=== PATIENT | male | born 1950 | race Caucasian/White ===

== ENCOUNTER 2023-10-24 04:51 | Inpatient (IN) | payer BC, MEDICARE, SELFPAY ==
[2023-10-14 09:03] LABS: % Basophils 0.4 % (0-2); % Eosinophils 2.6 % (0-6); % Immature Granulocytes 0.4 % (0-0.5); % Lymphocytes 20.8 % (20.5-51.1); % Monocytes 5.5 % (1.7-9.3); % Neutrophils 70.3 % (42.2-75.2); Absolute Eosinophils 0.2 10^3/uL (0-0.7); Absolute Lymphocytes 1.5 10^3/uL (1.2-3.4); Absolute Monocytes 0.4 10^3/uL (0.1-0.6); Absolute Neutrophils 5.1 10^3/uL (1.4-6.5); Hematocrit 39.1 % (39.0-52.0); Hemoglobin 13.5 g/dL (13.0-18.0); Mean Corp Hgb Conc. 34.5 g/dL (33.0-37.0); Mean Corpuscular Hgb 30.8 pg (27.0-31.0); Mean Corpuscular Volume 89.1 fL (80.0-94.0); Mean Platelet Volume 9.3 fL (7.4-10.4); Nucleated Red Blood Cells % 0 % (-); Platelet Count 275 10^3/uL (130-400); Red Blood Cell Count 4.39 10^6/uL (4.70-6.10); Red Cell Dist. Width 13.2 % (11.5-14.5); White Blood Cell Count 7.3 10^3/uL (4.8-10.8)
[2023-10-14 09:05] LABS: Urine Albumin Negative (Neg - Trace); Urine Bilirubin Negative (Negative); Urine Character Clear (Clear); Urine Color Yellow; Urine Glucose Negative (Negative); Urine Ketone Negative (Negative); Urine Leukocyte Trace (Negative); Urine Nitrite Negative (Negative); Urine Occult Blood Trace (Negative); Urine Urobilinogen Negative (Neg - 1+); Urine pH 6.5 (5.0-9.0)
[2023-10-14 09:12] LABS: INR 0.95; PT 12.5 Sec (11.4-14.6)
[2023-10-14 09:27] LABS: Urine Bacteria Few (Negative)
[2023-10-14 09:27] LABS: Glycohemoglobin (HgbA1c) 7.1 % (4.0-5.6)
[2023-10-14 10:06] LABS: AST (SGOT) 26 U/L (17-59); Albumin 4.1 g/dl (3.5-5.0); Alkaline Phosphatase 79 U/L (38-126); Blood Urea Nitrogen 15 mg/dl (9-20); Calcium 9.4 mg/dl (8.4-10.2); Carbon Dioxide 27 mmol/L (22-30); Chloride 105 mmol/L (98-107); Direct Bilirubin 0.5 mg/dl (0.0-0.4); Glucose 116 mg/dl (70-99); Potassium 4.3 mmol/L (3.5-5.1); Sodium 138 mmol/L (135-145); Total Bilirubin 0.6 mg/dl (0.2-1.3); Total Protein 6.7 g/dl (6.3-8.2); eGFR > 60.00
--- NOTE | 2023-10-14 10:36 | CM ---
Addendum entered by Maren Webster RN 10/14/23 10:44:
Patient saw Dr Poole at [facility] when he was treated for his LA 08/2023 but is a patient at [facility]. He was a patient of Dr Gann but is now seeing Dr Lopez. Has an appointment on 11/13/2023
Original Note:
Chart reviewed. Met with the patient in PAT. Patient is independent of ADLS, lives alone in a 2 STH, 2 DAVIDE, 0 DME. 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 Patient's son lives down the street and is taking FMLA
to help his father after surgery. Reviewed preoperative and postoperative instructions and restrictions, along with showering guidelines. Gave patient 2 soaps. Patient is agreeable to a home visit by CT Transitional RN. Plan is for the patient
to return home with CT Transitional RN.
[2023-10-14 11:08] LABS: ALT (SGPT) 19 U/L (0-50)
[2023-10-24] VITALS (11 sets, daily range): BP systolic 105–150; BP diastolic 54–76; BMI 25.5
--- NOTE | 2023-10-24 00:56 | W.PN.CT ---
Assessment / Plan
-
-Assessment:
-S/P AVR (#23 Inspiris RESILIA)/CABG x 2 (ROSI to LAD, GSV to D1)/Endoscopic harvest/prep of RLE GSV, by Dr. Ricardo, 10/24/23, pod#1
-Severe
-LVEF
-Severe multivessel CAD
-Hx NSTEMI S/P PCI with YULY x 3 to RCA, complicated by broken wire in the RCA, 09/09/23 @ [facility]
-S/P PCI with YULY x 1 to RCA to trap broken wire in RCA, 09/09/23 @ [facility] (on Brilinta @ home)
-Brilinta washout
-HTN
-HLD
-T2DM (A1C 7.1)
-Former tobacco use (quit x 50 yrs)
-S/P Appendectomy
-Acute postop blood loss/anemia (stable without blood transfusion)
-Acute postop atelectasis/pleural effusion
-Acute postop hypovolemia with subsequent hypervolemia
Plan:
-No major issues overnight. Hemodynamically and neurologically intact
-Successfully extubated yesterday 10/24/23 @ 1900
-Weaned off Levophed overnight, currently only on insulin gtt per protocol
-Last CI 2.4, U/O since OR 1055 mL
-Monitor chest tube output: 2meds 160/290, L pleural
-Cont. current meds (ASA, Amiodarone, Lopressor, Crestor; will add Plavix, held Amiodarone and Lopressor last night d/t hypotension/bradycardia)
-D/C'd swan and a-line this AM @
-Will D/C insulin gtt/transfer to telemetry phase tomorrow since pt is a diabetic
-D/C mcnally catheter
-Maintain cordis
-Maintain temporary pacer wire (will cut before d/c home)
-Encourage use of IS
-Wean off of O2 as tolerated
-OOB into chair
-Ambulate
Subjective
-
Date of Service: October 24, 2023
Objective Data
-
Lab Results
10/14/23 08:33
10/14/23 08:33
PT 12.5 Sec (11.4-14.6) 10/14/23 08:33
INR 0.95 10/14/23 08:33
APTT 29.0 Sec (23.4-35.0) 10/14/23 08:33
[2023-10-24] MEDS: BACTROBAN 2% OINTMENT 1 APPLIC NASAL ×2 (05:56→20:00)
[2023-10-24] MEDS: LOPRESSOR 25 MG PO (05:57)
[2023-10-24] MEDS: PROTONIX 40 MG PO (05:57)
[2023-10-24] MEDS: MAGNESIUM OXIDE 500 MG PO (05:57)
--- NOTE | 2023-10-24 06:30 | PTCARENOTE ---
Patient arrived to room 2265 with security dispatcher. Patient A+A+Ox3. No neurological deficits noted. Steady gait. No c/o pain or discomfort. Patient confirmed NPO status after midnight. Patient confirmed taking 4% chlorhexidine shower last
night and this morning. Patient clipped and prepped per protocol. Admission questions and medication reconciliation completed. Required pre-op medications administered. Metoprolol 25 mg PO given. Patient stopped Brilinta on 10/18/23. Patient
practiced using heart pillow. I.S. [address] Ricardo arrived and spoke with patient. manager call to [facility].
--- NOTE | 2023-10-24 06:41 | W.CVOR.SURPR ---
[facility] Surgeon Immed Pre Op
-
I have examined this patient prior to performance of the scheduled procedure.
The patient's condition is unchanged from the time of the dictated/written History and
Physical and the patient is able to undergo the scheduled procedure.
[2023-10-24 08:10] LABS: ACT+ - POC 107 Seconds (82-134)
[2023-10-24 08:13] LABS: Urine Albumin Negative (Neg - Trace); Urine Bilirubin Negative (Negative); Urine Character Clear (Clear); Urine Color Yellow; Urine Glucose Negative (Negative); Urine Ketone Negative (Negative); Urine Leukocyte 1+ (Negative); Urine Nitrite Negative (Negative); Urine Occult Blood 3+ (Negative); Urine Urobilinogen Negative (Neg - 1+); Urine pH 6.5 (5.0-9.0)
[2023-10-24 08:22] LABS: B.E. - POC -1.5 mmol/L; Glucose - POC 142 mg/dl (65-99); HCO3 - POC 22 mmol/L (21-29); Hematocrit - POC 35 % PCV (42-52); Hemodilution- POC Yes; Hemoglobin Calculated - POC 11.9; Ionized Calcium - POC 1.13 mmol/L (1.12-1.27); O2 Saturation %Calculated-POC 99.9 5 (92-96); PCO2 - POC 33 mmHg (35-45); PO2 - POC 285 mmHg (80-100); Potassium - POC 3.8 mmol/L (3.6-5.0); Sodium - POC 141 mmol/L (135-145); pH - POC 7.44 (7.35-7.45)
[2023-10-24 08:25] LABS: ACT+ - POC 93 Seconds (82-134)
--- NOTE | 2023-10-24 09:48 | CM ---
pt in OR today, cm to follow.
[2023-10-24 10:12] LABS: ACT+ - POC 862 Seconds (82-134)
[2023-10-24 10:56] LABS: ACT+ - POC 615 Seconds (82-134)
[2023-10-24 10:59] LABS: B.E. - POC 0.8 mmol/L; Glucose - POC 217 mg/dl (65-99); HCO3 - POC 26 mmol/L (21-29); Hematocrit - POC 26 % PCV (42-52); Hemodilution- POC Yes; Hemoglobin Calculated - POC 8.8; Ionized Calcium - POC 1.01 mmol/L (1.12-1.27); O2 Saturation %Calculated-POC 99.9 5 (92-96); PCO2 - POC 42 mmHg (35-45); PO2 - POC 278 mmHg (80-100); Potassium - POC 5.1 mmol/L (3.6-5.0); Sodium - POC 138 mmol/L (135-145)
[2023-10-24 11:34] LABS: ACT+ - POC 510 Seconds (82-134)
[2023-10-24 11:36] LABS: B.E. - POC -1.3 mmol/L; Glucose - POC 194 mg/dl (65-99); HCO3 - POC 24 mmol/L (21-29); Hematocrit - POC 26 % PCV (42-52); Hemodilution- POC Yes; Hemoglobin Calculated - POC 8.7; Ionized Calcium - POC 1.06 mmol/L (1.12-1.27); O2 Saturation %Calculated-POC 99.9 5 (92-96); PCO2 - POC 44 mmHg (35-45); PO2 - POC 284 mmHg (80-100); Potassium - POC 4.3 mmol/L (3.6-5.0); Sodium - POC 140 mmol/L (135-145); pH - POC 7.35 (7.35-7.45)
[2023-10-24 12:10] LABS: ACT+ - POC 451 Seconds (82-134)
[2023-10-24 12:11] LABS: B.E. - POC -0.3 mmol/L; Glucose - POC 167 mg/dl (65-99); HCO3 - POC 24 mmol/L (21-29); Hematocrit - POC 27 % PCV (42-52); Hemodilution- POC Yes; Hemoglobin Calculated - POC 9.1; Ionized Calcium - POC 1.06 mmol/L (1.12-1.27); O2 Saturation %Calculated-POC 99.9 5 (92-96); PCO2 - POC 37 mmHg (35-45); PO2 - POC 251 mmHg (80-100); Potassium - POC 4.1 mmol/L (3.6-5.0); Sodium - POC 142 mmol/L (135-145); pH - POC 7.42 (7.35-7.45)
[2023-10-24 12:30] LABS: ACT+ - POC 503 Seconds (82-134)
[2023-10-24 12:51] LABS: B.E. - POC -0.4 mmol/L; Glucose - POC 164 mg/dl (65-99); HCO3 - POC 24 mmol/L (21-29); Hematocrit - POC 27 % PCV (42-52); Hemodilution- POC Yes; Ionized Calcium - POC 1.04 mmol/L (1.12-1.27); O2 Saturation %Calculated-POC 99.9 5 (92-96); PCO2 - POC 36 mmHg (35-45); PO2 - POC 297 mmHg (80-100); Potassium - POC 4.1 mmol/L (3.6-5.0); Sodium - POC 142 mmol/L (135-145); pH - POC 7.43 (7.35-7.45)
[2023-10-24 13:17] LABS: ACT+ - POC 98 Seconds (82-134)
[2023-10-24 13:19] LABS: Glucose - POC 144 mg/dl (65-99); HCO3 - POC 23 mmol/L (21-29); Hematocrit - POC 26 % PCV (42-52); Hemodilution- POC Yes; Hemoglobin Calculated - POC 8.8; Ionized Calcium - POC 1.31 mmol/L (1.12-1.27); PCO2 - POC 39 mmHg (35-45); PO2 - POC 546 mmHg (80-100); Potassium - POC 3.5 mmol/L (3.6-5.0); Sodium - POC 143 mmol/L (135-145); pH - POC 7.38 (7.35-7.45)
--- NOTE | 2023-10-24 13:57 | CON.INTV ---
Consultation
Consultation Request
Date/Time Consultation Requested: 10/24/23
Date/Time Consultation Performed: 10/24/23
Medical History
-
History of Present Illness:
Patient is a 73-year-old male with previous history of severe aortic stenosis, CAD with recent PCI/YULY x 3 on 09/09/2023 complaining of worsening dyspnea on exertion over a 1 to 2-year period. Underwent CABG and AVR 10/24/2023 and postoperatively
transferred to CVICU for further management.
Past Medical History
Past Medical History: Other (see list below)
Social History
Tobacco: Non-smoker
Alcohol: None
Drug: None
Allergies / Home Medications
Allergies
Allergy/AdvReac Type Severity Reaction Status Date / Time
No Known Allergies Allergy Verified 10/13/23 12:05
Home Medications
Medication Instructions Recorded Confirmed Last Taken Type
metformin 1,000 mg tablet 1,000 mg PO BID Diabetes 09/09/23 10/24/23 10/23/23 18:00 History
1000 mg
timolol maleate 0.5 % eye drops 1 drp BOTH EYES DAILY Eye Condition 09/09/23 10/24/23 10/23/23 20:00 History
1 drop both
eyes
valsartan 160 mg tablet 80 mg PO QPM Blood Pressure 09/09/23 10/24/23 10/22/23 20:00 History
80 mg
acetaminophen 325 mg tablet 325 mg PO Q4HPRN PRN mild pain 10/13/23 10/24/23 10/19/23 06:00 History
325 mg
metoprolol succinate 25 mg 12.5 mg PO DAILY Heart 10/13/23 10/24/23 09/12/23 08:00 History
tablet,extended release 24 hr Disease/Condition 12.5 mg
aspirin 81 mg chewable tablet 81 mg PO DAILY Blood Clot 10/24/23 10/24/23 10/23/23 08:00 History
(Children's Aspirin) Prevention/Tx 81 mg
rosuvastatin 10 mg tablet 5 mg PO QPM High Cholesterol 10/24/23 10/24/23 10/23/23 07:00 History
5 mg
ticagrelor 90 mg tablet (Brilinta) 90 mg PO BID Blood Clot 10/24/23 10/24/23 10/18/23 20:00 History
Prevention/Tx 90 mg
Review of Systems
Vitals / Labs / Diagnostic Testing
Vital Signs
Temp Pulse Resp BP Pulse Ox
98.2 F 78 16 127/69 98
10/24/23 05:20 10/24/23 05:57 10/24/23 05:20 10/24/23 05:57 10/24/23 05:20
Diagnostic Testing:
Assessment
-
Patient is a 73-year-old male with previous history of severe aortic stenosis, CAD with recent PCI/YULY x 3 on 09/09/2023 complaining of worsening dyspnea on exertion over a 1 to 2-year period. Underwent CABG and AVR 10/24/2023 and postoperatively
transferred to CVICU for further management.
Severe s/p AVR; Multivessel CAD s/p CABG x 2 10/24/23
Perioperative MV
Postop anemia
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
Aortic stenosis� �
Atherosclerosis Coronary Artery�with Unstable Angina Pectoris� �
Type II diabetes� �
Hypertension� �
HX cardiac stents� �
History of NSTEMI, angioplasty and stent x4 to Right� � 09/09/2023� �
Appendectomy� �
Plan
S/p CAB/AVR POD #0
Titrate off pressors per protocol
Prior ECHO for reviewed with normal EF, recent C reviewed
PA catheter readings reviewed
Management of chest tubes per primary service
Intubated/sedated, initiate SAT when able
Pain control
RASS goal of 0 to -1
Intubated for procedure, SBT trial when patient able to spontaneously breath
Current vent settings: SIMV 500/14/60/5
ABG(s) reviewed-adequate
CXR with no obvious opacities/infiltrates, stable postop changes, ETT in good position, lines/tubes in place
Extubate per protocol
Maintain supplement oxygen as needed
No prior history of pulmonary disease, former smoker >50 years ago
No prior PFTs for review
Can add nebulizers if needed
Aspiration precautions
Encouraged incentive spirometry, OOB/ambulation/early mobility
Advance diet as tolerated following extubation
GI prophylaxis if indicated for mechanical ventilation >48 hours
Monitor critical I/O's
Dove/chest tube output
Hb/platelets postoperatively stable
Hb noted to be in 9 range/Trend CBC for now
Can transfuse if indicated for Hb <7, plt <50 in surgical patients
DVT prophylaxis including SCDs
We will follow
Diagnostic Data
CXR 10/24/23- Endotracheal tube is 2 cm above the jennifer. Plain-Nic catheter tip is oriented toward the right and at the level of the main pulmonary artery segment. There is a mediastinal drain and left-sided chest tubes. No pneumothorax. The heart
size is mildly enlarged. Patient is status post median sternotomy and valve replacement. Minimal atelectasis and/or interstitial edema.
ECHO 09/08/23: Normal LV function, EF 50-55%. Normal RV function, mild to moderate concentric LVH. Severe aortic valve stenosis. Moderate mitral annular calcification, inadequate tricuspid regurg to estimate PA pressure
[facility] 09/09/23- 1: Successful PCI with YULY x 1 to the right coronary artery.� Roslyn drug-eluting stent was used to cover an area of the right coronary artery where a wire fragment was placed.� The purpose of the procedure was to trap the broken off
piece of the wire behind the stent.
2: Completely revascularized right coronary artery with FELIX-3 flow.
-----
Critical Care time 50 mins -- The patient is admitted for acute critical illness for the treatment of vital organ failure and/or prevention of further life-threatening conditions. Total care includes time spent in review of history, physical exam,
medications, hemodynamic/ventilator parameters, laboratory data, imaging and discussion with house staff, pharmacy, respiratory therapy, airline security representative, and nursing.
--- NOTE | 2023-10-24 14:00 | W.IMMPOSTOP ---
Addendum entered and electronically signed by Jeyson Ricardo MD 10/24/23 15:46:
Dictated: [id number]
Original Note:
Surgical Immed Post Op Note
-
CARDIAC SURGERY OPERATIVE NOTE:
Preoperative Dx:
Multivessel CAD
AMI s/p RCA stenting
Severe aortic valve stenosis (P/M: 74.6/42.3; JOSE 0.48)
Postoperative Dx:
Same
Procedures:
1) Removal of upper & lower chest wall nevi
2) Median sternotomy
3) Takedown of ROSI (narrow pedicle)
4) Endoscopic harvest/prep of RLE GSV
5) CABG x 2 (ROSI to LAD, GSV to D1)
6) AVR (#23 Inspiris RESILIA)
Surgeon:
Jeyson Ricardo M.D.
Cook Cold Meat:
iKersten Moser P.A.-C.; endoscopic harvest/prep of RLE GSV, catering administrative assistant throughout
Anesthesia:
Cesar George M.D. and Bailee Mclain, C.R.N.A.
Perfusion:
Iain HillC.P.; XC: 129min, CPB: 164min
Findings:
ROSI was slightly small, but healthy appearing conduit w/ brisk blood flow; ELD 2.0
GSV was healthy appearing conduit w/ slightly thickened crump; ELD 3.5
LAD was visible on epicardial surface, scattered calcifications; ELD 2.50mm
D was visible on epicardial surface, scattered calcifications; ELD 2.75mm
AV was trileaflets w/ extensive leaflet calcifications extending into annulus circumferentially w/ additional calcifications extending subvalvularly onto aortomitral curtain. Annulus and LVOT measured for 23mm valve
Inspiris valve secured w/ 14 interrupted, pledgetted sutures
Good flow on intraoperative graft [id number] assessment
POST-EZ: well-seated AVR w/o AI/PVL, mean gradient 9mmHg at CI 2.9 w/ LVEF 65-70% w/o RWMA
Implants:
Epicardial V-wire x 1
CT x 3 (L pleural, inferior mediastinal, superior mediastinal)
Sternal wires x 9
[employer], 23mm, Model [id number], SN: [id number]
Complications:
None
Condition:
GTTS: Levophed 4, Insulin 1, Precedex 0.7
CO/CI: 4.0/2.2. 65 sinus w/ isoelectric STs. 102/55. 41/24. CVP 19.
Stable/guarded to CVICU
[2023-10-24] MEDS: ALBUMIN 5% 250 IV ×2 (14:20→15:00)
[2023-10-24] MEDS: NSS 500 IV (14:20)
[2023-10-24 14:22] LABS: Glucose - Point of Care 143 mg/dl (70-99)
[2023-10-24 14:38] LABS: Hematocrit 27.8 % (39.0-52.0); Hemoglobin 9.8 g/dL (13.0-18.0); Platelet Count 132 10^3/uL (130-400)
--- NOTE | 2023-10-24 14:38 | PTCARENOTE ---
Received pt from [facility] at 1415; pt intubated and sedated; NSR with Prolonged QT on monitor and VSS; Epicardial V wries to back up 30/10 no pacing noted; RIJ Cordis, [place]one floated to 45, Left A-line and PIV x1, all lines leveled and zeroed; Levo,
Insulin and Precedex infusing see flow sheets for details; Lungs diminished; CT x3 to -20 wall suction, no air leak and no crepitus noted; hypoactive bowel sounds; Dove Catheter draining clear yellow urine; palpable pulses; no edema noted; all
surgical dressing C/D?I; see nursing documentation for further details.
CI 1.78
CO 3.51
SVR 1640
[2023-10-24 14:39] LABS: HCO3 23.1 mmol/L (21-28); O2 Saturation % 99.6 % (94-98); PCO2 40 mmHg (35-48); PO2 235 mmHg (83-108); Potassium 3.7 mMOL/L (3.5-5.1); Sodium 139 mMOL/L (136-145); pH 7.37 (7.35-7.45)
[2023-10-24 14:42] LABS: Mixed Venous O2 Saturation 79.1 %
[2023-10-24] MEDS: KCL 50 IV ×2 (14:44→16:08)
[2023-10-24 14:49] LABS: INR 1.54; PT 18.3 Sec (11.4-14.6)
[2023-10-24 14:50] LABS: APTT 32.7 Sec (23.4-35.0)
[2023-10-24 14:52] LABS: Blood Urea Nitrogen 16 mg/dl (9-20); Estimated Creatinine Clearance 96 ml/min; Glucose 139 mg/dl (70-99); Magnesium 2.2 mg/dl (1.6-2.3)
[2023-10-24 15:06] LABS: Glucose - Point of Care 129 mg/dl (70-99)
[2023-10-24] MEDS: ZINACEF 1500 MG IV ×2 (15:20)
[2023-10-24] MEDS: NOVOLOG FLEXPEN SC ×2 (15:20→16:53)
[2023-10-24] MEDS: STERILE WATER FOR INJECTION 16 ML IV ×2 (15:20)
[2023-10-24] MEDS: TYLENOL PO ×4 (15:21→22:36)
--- NOTE | 2023-10-24 15:32 | W.PN.UPDATE ---
Update Note
Progress Note Update
73 y/o male with PMHx of T2DM, HTN, NSTEMI in august presents today for elective AVR/CABG with DR. Ricardo
IV fluids: 2700
U.O.:� 750
Blood:� None
Wires:� V-Wires
Inotropes:� None
Pressors:� Levophed
Sedatives:� Precedex
�
NEURO: sedated on XXX, pupils +1mm B/L
RESP: #8OT @24cm> 14/500/60/5. Lungs clear B/L. 2 mediastinal (20cc on arrival) and L pleural (10cc on arrival) chest tubes to -20cm suction. Sanguineous drainage
CV: RRR +S1, S2, no S3, no�rub, no murmur. RIJ w/Kake locked @ 48cm.
ABD: round, soft, no BS
EXT: no edema, +2/4 DP pulses B/L, no femoral bruit, RLE KIEL wrap intact; Left radial A-line intact
: Dove with clear yellow urine
�
A/P: POD #0 s/p AVR #23 and CABG x2 (GANN to LAD, SVG to D1)
EZ: EF�65-70%
- wean and extubate
- start ASA once tolerating PO
-f/u post-op labs
- F/u CXR
- Wean levophed to MAPs> 65
- will start BB/Amio on POD #1
- Follow CT outputs
- will need instruction regarding antibiotic prophylaxis for dental and invasive procedures
�- f/u post-op EKG
-Cardiology consulted
# acute surgical blood loss anemia-expected
- trend CBC
�
�
# Hyperlipidemia
- resume�rosuvastatin when tolerating PO
#DM Type 2
- Continue insulin gtt
- transition to PO agents once tolerating PO
[2023-10-24] MEDS: TIMOPTIC 0.5% OPHTHALMIC SOLUTION 1 DROP BOTH EYES (15:36)
[2023-10-24] MEDS: PEPCID 20 MG IV ×2 (15:36→20:01)
[2023-10-24] MEDS: NSS (PRESERVATIVE FREE) 8 ML IV ×2 (15:36→20:01)
[2023-10-24] MEDS: PACERONE PO (15:37)
[2023-10-24] MEDS: MORPHINE SULFATE 2 MG IV ×2 (15:49→22:09)
[2023-10-24 16:22] LABS: Glucose - Point of Care 111 mg/dl (70-99)
--- NOTE | 2023-10-24 16:35 | PTCARENOTE ---
CHG bath and leads changed; NSR with Prolonged AT on monitor and VSS; Insulin infusing see flow sheet for details.
[2023-10-24 17:02] LABS: Glucose - Point of Care 88 mg/dl (70-99)
[2023-10-24 18:03] LABS: Glucose - Point of Care 132 mg/dl (70-99)
--- NOTE | 2023-10-24 18:09 | W.PN.CARDCBS ---
Today's Communication / Plan
-
RECOMMENDATION:
-Resume dual antiplatelet therapy when bleeding risks acceptable.
-May consider further titration of rosuvastatin to 10mg or 'high intensity'. His goal LDL should be 55 mg/dl
-Amiodarone for afib prophylaxis
-Will follow: working toward extubation and weaning pressors.
Impression / Plan
-
IMPRESSION:
-s/p AVR #23 mm valve and CABG (GANN-LAD, SVG-D) for treatment of severe symptomatic aortic stenosis with CADz
-Recent NSTEMI with catherization and stenting of the RCA per Dr. Poole
-Hypertension
-Hyperlipidmeia
-Diabetes
RECOMMENDATION:
-Resume dual antiplatelet therapy when bleeding risks acceptable.
-May consider further titration of rosuvastatin to 10mg or 'high intensity'. His goal LDL should be 55 mg/dl
-Amiodarone for afib prophylaxis
-Will follow: working toward extubation and weaning pressors.
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
Subjective
Date of Service: October 24, 2023
Patient seen post op. He is opening eyes but ET tube in place and still sedated.
Objective
Labs:
10/24/23 14:21
Labs
Hgb 9.8 g/dL (13.0-18.0) L 10/24/23 14:21
Hct 27.8 % (39.0-52.0) L 10/24/23 14:21
Plt Count 132 10^3/uL (130-400) 10/24/23 14:21
PT 18.3 Sec (11.4-14.6) H 10/24/23 14:21
INR 1.54 10/24/23 14:21
APTT 32.7 Sec (23.4-35.0) 10/24/23 14:21
Sodium 138 mmol/L (135-145) 10/14/23 08:33
Potassium 4.3 mmol/L (3.5-5.1) 10/14/23 08:33
BUN 16 mg/dl (9-20) 10/24/23 14:21
Creatinine 0.7 mg/dL (0.7-1.3) 10/24/23 14:21
Glucose 139 mg/dl (70-99) H 10/24/23 14:21
Vital Signs and I&O:
Vital Signs
Temp Pulse Resp BP Pulse Ox
99.9 F 70 14 127/69 100
10/24/23 18:07 10/24/23 18:05 10/24/23 18:07 10/24/23 05:57 10/24/23 18:07
Vital Signs
Temp Pulse Resp BP Pulse Ox
99.9 F 70 14 127/69 100
10/24/23 18:07 10/24/23 18:05 10/24/23 18:07 10/24/23 05:57 10/24/23 18:07
Intake & Output
10/21/23 10/22/23 10/23/23 10/24/23
23:59 23:59 23:59 23:59
Intake Total 890.6 / 890.6
Output Total 1305 / 1305
Balance -414.4 / -414.4
Physical Exam
Physical Exam
GEN: Post op. ET tube in place. Opens eyes. No distress
HEENT: NC/AT, sclera are anicteric, ET tube in place. Opening eyes.
LUNGS: Clear anteriorly. Chest tubes in place. No wheezing
CV: Regular rate and rhythm. Normal S1/S2. Murmur: distant HS. None appreciated.
ABD : Soft, NT, Bowel sounds are present.
EXT: No CCE
--- NOTE | 2023-10-24 18:13 | PTCARENOTE ---
Respiratory at bedside and pt placed on CPAP.
[2023-10-24 18:14] LABS: Hematocrit 26.8 % (39.0-52.0); Hemoglobin 9.2 g/dL (13.0-18.0); Platelet Count 135 10^3/uL (130-400)
[2023-10-24 18:46] LABS: B.E. -0.5 mmol/L; HCO3 24.2 mmol/L (21-28); Ionized Calcium 1.15 mMOL/L (1.15-1.33); O2 Saturation % 98.7 % (94-98); PCO2 39 mmHg (35-48); PO2 187 mmHg (83-108); Potassium 4.6 mMOL/L (3.5-5.1); Sodium 140 mMOL/L (136-145)
[2023-10-24 18:55] LABS: Glucose - Point of Care 124 mg/dl (70-99)
--- NOTE | 2023-10-24 19:05 | PTCARENOTE ---
Reviewed ABG's with CV SURGICAL AIDE, Respiratory in with pt and pt extubated; 6L on NC.
[2023-10-24] MEDS: CALCIUM CHLORIDE 10% SYRINGE 50 MG IV (19:11)
[2023-10-24] MEDS: CALCIUM CHLORIDE 10% SYRINGE 50 ML IV (19:11)
--- NOTE | 2023-10-24 19:13 | PTCARENOTE ---
assumed care of patient @ 1900. Pt extubated at change of shift with day shift nurse and and RT. Pt awake alert and oriented x3, responds to verbal commands and moves extremities appropriately. NSR on monitor with prolonged QT. + pulses all around.
V wire set to backup 30/10. Cardiac index at 1900 2.01, SVR 1142, PAP 20s/10s, CVP ~10, BP 100s/50s. Lungs sound diminished on 6L. Worked with IS at extubation able to get 500. 3 chest tubes present draining serosang fluid, no air leak, tidaling or
crepitus noted. BS hypoactive. Mcnally present draining clear yellow urine- mcnally with small amount of blood at insertion site. Sternal aquacel CDI, R upper thigh site CDI, R leg site wrapped with joselyn wrap. R arm PIV, R IJ cordis with kvo, swan at 45
and L radial a line. central lines zeroed, flushed. Calcium repleted at shift change. On insulin per protocol. Pt resting comfortably with call sevilla within reach
[2023-10-24] MEDS: OFIRMEV 100 IV (19:56)
[2023-10-24] MEDS: LOW STRENGTH ASPIRIN 81 MG PO (20:02)
[2023-10-24] MEDS: SENOKOT-S PO (20:11)
[2023-10-24 21:01] LABS: Glucose - Point of Care 96 mg/dl (70-99)
[2023-10-24] MEDS: STERILE WATER FOR INJECTION 8.30000000000000071 ML IV (22:03)
[2023-10-24] MEDS: ZINACEF 750 MG IV (22:04)
[2023-10-24 23:08] LABS: Glucose - Point of Care 116 mg/dl (70-99)
--- NOTE | 2023-10-24 23:25 | PTCARENOTE ---
Assumed care of patient from previous RN. Walking rounds completed. Pt SR on monitor (w/ prolonged QT interval). HR 60s. Temporary epicardial v-wire intact and set to 30/10. BP 100s-110s/50-60s. Left arterial line intact, zeroed and flushed. [place]
@45 cm. CVP 8-10. PAP 20's/teens. CO: 4.75 / CI: 2.4 / SVR: 1044. CVP and PAP zeroed and flushed. Bilateral radial and DP pulses palpable. No edema noted at this time. Lung sounds diminished. IS and deep breathing encouraged. Pt on 2 L NC. POX 99%.
Mediastinal CTx2 to -20 suction, no air-leak/tidaling/crepitus noted, and output as documented in I & O. Left pleural CT to -20 suction, no air-leak/tidaling/crepitus noted, and output as documented in I & O. CT dressing CDI. Abdomen soft/nontender.
Temp sensing Dove catheter in place. Minor blood around catheter insertion site. BS hypoactive. Sternal incision CDI. Right leg KIEL bandage intact. Right groin site intact/soft/nontender. Right IJ cordis CDI. Right PIV CDI and flushes. Glycemic
protocol followed. See work-list for full nursing assessment and interventions. Pt resting in bed at this time. Call sevilla within reach.
[2023-10-25] VITALS (37 sets, daily range): BP systolic 91–144; BP diastolic 41–112; PULSE 69; O2SAT 98–99; BMI 26.1
[2023-10-25 01:10] LABS: Glucose - Point of Care 89 mg/dl (70-99)
[2023-10-25] MEDS: ROXICODONE 5 MG PO ×5 (01:31→22:16)
[2023-10-25 03:20] LABS: Glucose - Point of Care 119 mg/dl (70-99)
[2023-10-25] MEDS: TYLENOL 650 MG PO ×5 (03:27→20:10)
[2023-10-25 03:49] LABS: Hematocrit 26.9 % (39.0-52.0); Mean Corp Hgb Conc. 33.5 g/dL (33.0-37.0); Mean Corpuscular Hgb 30.7 pg (27.0-31.0); Mean Corpuscular Volume 91.8 fL (80.0-94.0); Mean Platelet Volume 9.7 fL (7.4-10.4); Platelet Count 139 10^3/uL (130-400); Red Blood Cell Count 2.93 10^6/uL (4.70-6.10); Red Cell Dist. Width 13.5 % (11.5-14.5); White Blood Cell Count 12.7 10^3/uL (4.8-10.8)
--- NOTE | 2023-10-25 04:07 | W.PN.CT ---
Today's Communication / Plan
-
Plan:
-No major issues overnight. Hemodynamically and neurologically intact
-Successfully extubated yesterday 10/24/23 @ 1900
-Weaned off Levophed overnight, currently only on insulin gtt per protocol
-Last CI 2.5, U/O since OR 1660 mL
-Monitor chest tube output: 2meds 80/215, L pleural 55/175
-Cont. current meds (ASA, Amiodarone, Lopressor, Crestor; will add Plavix, held Amiodarone and Lopressor last night d/t hypotension/bradycardia)
-Consider hold on Amiodarone today, episode of bradycardia last night
-D/C'd swan and a-line this AM @ 0430
-Will D/C insulin gtt/transfer to telemetry phase tomorrow since pt is a diabetic. Consider Diabetes management/education consult, A1C 7.1
-D/C mcnally catheter
-Maintain cordis
-Maintain temporary pacer wire (will cut before d/c home)
-Encourage use of IS
-Wean off of O2 as tolerated
-OOB into chair
-Ambulate
Assessment / Plan
-
-Assessment:
-S/P AVR (#23 Inspiris RESILIA)/CABG x 2 (ROSI to LAD, GSV to D1)/Endoscopic harvest/prep of RLE GSV, by Dr. Ricardo, 10/24/23, pod#1
-Severe
-LVEF
-Severe multivessel CAD
-Hx NSTEMI S/P PCI with YULY x 3 to RCA, complicated by broken wire in the RCA, 09/09/23 @ [facility]
-S/P PCI with YULY x 1 to RCA to trap broken wire in RCA, 09/09/23 @ [facility] (on Brilinta @ home)
-Brilinta washout
-HTN
-HLD
-T2DM (A1C 7.1)
-Former tobacco use (quit x 50 yrs)
-S/P Appendectomy
-Acute postop blood loss/anemia (stable without blood transfusion)
-Acute postop atelectasis/pleural effusion
-Acute postop hypovolemia with subsequent hypervolemia
Discussed patient care with: Cardiology, Nursing, Respiratory Therapy, Pharmacy and Care Team
Subjective
Procedure
AVR (#23 Inspiris RESILIA)/CABG x 2 (ROSI to LAD, GSV to D1)/Endoscopic harvest/prep of RLE GSV, by Dr. Ricardo, 10/24/23
-
Date of Service: October 25, 2023
Pt c/o incisional pain, otherwise feels well
Objective Data
-
Lab Results
10/25/23 03:19
PT 18.3 Sec (11.4-14.6) H 10/24/23 14:21
INR 1.54 10/24/23 14:21
APTT 32.7 Sec (23.4-35.0) 10/24/23 14:21
Vital Signs
Vital Signs
Temp Pulse Resp BP Pulse Ox
98.1 F 67 20 115/57 98
10/25/23 03:00 10/25/23 03:20 10/25/23 03:00 10/25/23 03:00 10/25/23 03:20
CT Intake/Output/Weight
10/24/23 10/24/23 10/25/23
06:59 18:59 06:59
Intake Total 917.0 / 1328.9 411.9 / 1328.9
Output Total 1405 / 1989 585 / 1990
Balance -488.0 / -661.1 -173.1 / -661.1
SaO2: 98 (2L)
Physical Exam
-
General: Awake, Oriented and AOx3
Cardiovascular: Regular rate & rhythm, No Murmurs, No Rub and No Gallop
Respiratory: Decreased Breath Sounds (at bases with mild basilar crackles)
Sternum: Stable
Incision: Clean, Dry, Intact and Dressing Intact
Extremities: Other (+trace edema)
Data Reviewed
-
Lab Results: Results Reviewed
Medications: Active Meds Reviewed
Chest X-Ray: Report Reviewed and Image Reviewed
ECG: Report Reviewed and Image Reviewed
[2023-10-25 04:13] LABS: Blood Urea Nitrogen 17 mg/dl (9-20); Calcium 8.7 mg/dl (8.4-10.2); Carbon Dioxide 22 mmol/L (22-30); Chloride 111 mmol/L (98-107); Estimated Creatinine Clearance 74 ml/min; Glucose 110 mg/dl (70-99); Magnesium 2.1 mg/dl (1.6-2.3); Potassium 4.4 mmol/L (3.5-5.1); Sodium 139 mmol/L (135-145); eGFR > 60.00
[2023-10-25 05:06] LABS: Glucose - Point of Care 92 mg/dl (70-99)
--- NOTE | 2023-10-25 05:19 | PTCARENOTE ---
Pt reassessed. Pt SR on monitor. HR 60s. BP 110's-120's/50-60s. 2 L NC. POX 99%. CT assessment unchanged. Pt de-lined per order. Left a-line dc'd per order. Glycemic protocol followed. All surgical sites stable. Dove catheter intact. Pt voiding
yellow urine. Assessments, interventions, and medications as documented. Pt resting in bed at this time. Call sevilla within reach.
[2023-10-25] MEDS: ZINACEF 750 MG IV ×2 (06:22→13:34)
[2023-10-25] MEDS: STERILE WATER FOR INJECTION 8.30000000000000071 ML IV ×2 (06:22→13:34)
[2023-10-25 07:06] LABS: Glucose - Point of Care 110 mg/dl (70-99)
--- NOTE | 2023-10-25 07:57 | W.PN.ANS.POP ---
Anesthesia Post Operative
- Anesthesia Post Op Note
Vital Signs Stable-See Nursing Note: Yes
Airway Patent: Yes
Adequate Pain Control: Yes
Change in Mental Status: No
Current Postoperative Nausea & Vomiting: No
Anesthesia Complications: No
General Anesthetic Recall: No
Unplanned Admission: No
Post Op Hydration Adequate: Yes
--- NOTE | 2023-10-25 08:08 | PTCARENOTE ---
Received pt from production supervisor off shift RN; pt AAOx3 and resting comfortably in chair; NSR on monitor and VSS; Epicardial wires set to VVI 30/10 no pacing noted; RIJ Cordis KVO, PIV x1 all lines patent; Insulin infusing per Glycemic protocol see flow sheet for
details; lungs diminished; CT x3 to -20 wall suction no air leak and no crepitus noted; IS to 1000; hypoactive bowel sounds; Dove catheter draining clear yellow urine; palpable pulses throughout; no edema noted; all surgical dressing C/D/I; see
nursing documentation for further details.
[2023-10-25] MEDS: NOVOLOG FLEXPEN 4 UNITS SC ×2 (08:22→18:08)
[2023-10-25] MEDS: SENOKOT-S 1 TABLET PO ×2 (08:23→20:11)
[2023-10-25] MEDS: LOW STRENGTH ASPIRIN 81 MG PO (08:23)
[2023-10-25] MEDS: LOPRESSOR 12.5 MG PO ×2 (08:23→20:11)
[2023-10-25] MEDS: PACERONE 200 MG PO ×3 (08:23→22:03)
[2023-10-25] MEDS: MAGNESIUM OXIDE 500 MG PO ×2 (08:23→20:11)
[2023-10-25] MEDS: LASIX 40 MG IV (08:24)
[2023-10-25] MEDS: KCL 20 MEQ PO (08:24)
[2023-10-25] MEDS: PLAVIX 75 MG PO (08:24)
[2023-10-25] MEDS: TIMOPTIC 0.5% OPHTHALMIC SOLUTION 1 DROP BOTH EYES (08:25)
[2023-10-25] MEDS: BACTROBAN 2% OINTMENT 1 APPLIC NASAL ×2 (08:25→20:10)
[2023-10-25 08:39] LABS: Glucose - Point of Care 109 mg/dl (70-99)
--- NOTE | 2023-10-25 10:21 | W.PN.CARDCBS ---
Addendum entered and electronically signed by Dakota Selby DO 10/25/23 14:54:
I saw and examined the patient.
The Rivet Sticker's note was reviewed and I agree with the note.
Comment:
Plan:
Cont post op care
Stable cv status
Cont DAPT with recent PCI
Cont Amiodarone. Remains sinus
Increase Crestor
Discussed with nursing.
Original Note:
Today's Communication / Plan
-
continue post op care
continue DAPT, lopressor, amiodarone. increase crestor
Impression / Plan
-
IMPRESSION:
-s/p AVR #23 mm valve and CABG (GANN-LAD, SVG-D) for treatment of severe symptomatic aortic stenosis with CADz 10/24/23
-Recent NSTEMI with catheterization and stenting of the RCA per Dr. Poole
-Hypertension
-Hyperlipidemia
-Diabetes
RECOMMENDATION:
-Doing well status post AVR/CABG 10/24/2023
-Continue postoperative care
-Given recent stenting, continue DAPT
-Remains in sinus rhythm on review of telemetry. Continue amiodarone/Lopressor
-Will plan to increase Crestor dose to 10 mg daily. LDL goal of 55
-Out of bed/IS
-Discussed with nursing
Progress Note - Inventory Assistant
Subjective
Date of Service: October 25, 2023
patient reports adequate pain control.
Objective
Labs:
10/25/23 03:19
10/25/23 03:19
Labs
Hgb 9.0 g/dL (13.0-18.0) L 10/25/23 03:19
Hct 26.9 % (39.0-52.0) L 10/25/23 03:19
Plt Count 139 10^3/uL (130-400) 10/25/23 03:19
PT 18.3 Sec (11.4-14.6) H 10/24/23 14:21
INR 1.54 10/24/23 14:21
APTT 32.7 Sec (23.4-35.0) 10/24/23 14:21
Sodium 139 mmol/L (135-145) 10/25/23 03:19
Potassium 4.4 mmol/L (3.5-5.1) 10/25/23 03:19
BUN 17 mg/dl (9-20) 10/25/23 03:19
Creatinine 0.9 mg/dL (0.7-1.3) 10/25/23 03:19
Glucose 110 mg/dl (70-99) H 10/25/23 03:19
Vital Signs and I&O:
Vital Signs
Temp Pulse Resp BP Pulse Ox
97.6 F 79 20 127/63 98
10/25/23 08:00 10/25/23 09:00 10/25/23 08:00 10/25/23 09:00 10/25/23 09:31
Vital Signs
Temp Pulse Resp BP Pulse Ox
97.6 F 79 20 127/63 98
10/25/23 08:00 10/25/23 09:00 10/25/23 08:00 10/25/23 09:00 10/25/23 09:31
Intake & Output
10/23/23 10/24/23 10/25/23 10/26/23
07:59 07:59 07:59 07:59
Intake Total 1383.0 / 1395.3 24.6 / 24.6
Output Total 2295 / 2400 365 / 365
Balance -912.0 / -1004.7 -340.4 / -340.4
Physical Exam
Physical Exam
GEN: No distress, awake, alert, oriented x3
HEENT: supple, anicteric, mmm, eomi
LUNGS: CTA B/L, no wheezes/rales
CV: Reg, S1/S2, no murmur
ABD: soft, BS+, NT/ND
EXT: No cyanosis, clubbing. trace edema of B/L LE
NEURO: Gross non-focal
SKIN: Warm, pink, dry. No rash. Sternotomy dressing c/d/i. CTs in place
--- NOTE | 2023-10-25 10:29 | PTCARENOTE ---
Chest Tubes x3 to bulb; V wires insulated and Dove catheter d/c'd per CV SALVAGE INSPECTOR [employer]OD [employer]S order.
[2023-10-25 11:13] LABS: Glucose - Point of Care 102 mg/dl (70-99)
--- NOTE | 2023-10-25 13:08 | W.PN.INTV ---
Today's Communication / Plan
Recommendations
Doing well post extubation, stable on room air
Off pressors, chest tubes are discontinued
Encouraged IS, PT/ambulation
Transfer to tele, we will sign off upon transfer
Assessment
-
Patient is a 73-year-old male with previous history of severe aortic stenosis, CAD with recent PCI/YULY x 3 on 09/09/2023 complaining of worsening dyspnea on exertion over a 1 to 2-year period. Underwent CABG and AVR 10/24/2023 and postoperatively
transferred to CVICU for further management.
Severe s/p AVR; Multivessel CAD s/p CABG x 2 10/24/23
Perioperative MV
Postop anemia
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
Aortic stenosis� �
Atherosclerosis Coronary Artery�with Unstable Angina Pectoris� �
Type II diabetes� �
Hypertension� �
HX cardiac stents� �
History of NSTEMI, angioplasty and stent x4 to Right� � 09/09/2023� �
Appendectomy� �
Plan
S/p CAB/AVR POD #1
Off pressors per protocol
Prior ECHO for reviewed with normal EF, recent C reviewed
Chest tubes are discontinued
Pain control
RASS goal of 0 to -1
Intubated for procedure, extubated and doing well
ABG(s) reviewed-adequate
CXR with stable changes
Maintain supplement oxygen as needed
No prior history of pulmonary disease, former smoker >50 years ago
No prior PFTs for review
Can add nebulizers if needed
Aspiration precautions
Encouraged incentive spirometry, OOB/ambulation/early mobility
Advance diet as tolerated following extubation
GI prophylaxis if indicated for mechanical ventilation >48 hours
Monitor critical I/O's
Dove/chest tube output
Hb/platelets postoperatively stable
Hb noted to be in 9 range/Trend CBC for now
Can transfuse if indicated for Hb <7, plt <50 in surgical patients
DVT prophylaxis including SCDs
Diagnostic Data
CXR 10/24/23- Endotracheal tube is 2 cm above the jennifer. [place]-Nic catheter tip is oriented toward the right and at the level of the main pulmonary artery segment. There is a mediastinal drain and left-sided chest tubes. No pneumothorax. The heart
size is mildly enlarged. Patient is status post median sternotomy and valve replacement. Minimal atelectasis and/or interstitial edema.
ECHO 09/08/23: Normal LV function, EF 50-55%. Normal RV function, mild to moderate concentric LVH. Severe aortic valve stenosis. Moderate mitral annular calcification, inadequate tricuspid regurg to estimate PA pressure
[facility] 09/09/23- 1: Successful PCI with YULY x 1 to the right coronary artery.� Guille drug-eluting stent was used to cover an area of the right coronary artery where a wire fragment was placed.� The purpose of the procedure was to trap the broken off
piece of the wire behind the stent.
2: Completely revascularized right coronary artery with FELIX-3 flow.
-----
Critical Care time 32 mins -- The patient is admitted for acute critical illness for the treatment of vital organ failure and/or prevention of further life-threatening conditions. Total care includes time spent in review of history, physical exam,
medications, hemodynamic/ventilator parameters, laboratory data, imaging and discussion with house staff, pharmacy, respiratory therapy, store consultant, and nursing.
Subjective Dataa
Subjective Data
Date of Service:
Date of Service: October 25, 2023
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
Subjective:
doing well post extubation
stable on room air
pain with deep inspiration
Objective Data
Data Reviewed
Vital Signs / I&O / Oxygen:
Vital Signs
Temp Pulse Resp BP Pulse Ox
97.6 F 65 18 93/55 97
10/25/23 08:00 10/25/23 11:00 10/25/23 11:00 10/25/23 11:00 10/25/23 11:00
Intake and Output
10/24/23 10/25/23 10/26/23
06:59 06:59 06:59
Intake Total 1372.4 / 1372.4 59.2 / 59.2
Output Total 2250 / 2250 825 / 825
Balance -877.6 / -877.6 -765.8 / -765.8
SaO2 [CPAP] 100
SaO2 [SIMV] 100
SaO2 97
Nasal Cannula flow liters per 2
minute
Physical Exam
General: Comfortable and Other (NAD)
HEENT: Normocephalic, Anicteric and Moist Mucous Membranes
Cardiovascular: S1-S2 and Regular Rhythm
Respiratory: Clear and Non-Labored Respirations
GI: Soft, Non Distended and Non Tender
Neurology: Awake, Alert, Oriented, AO x 3 and No Motor Deficits
Skin: Warm, Dry and Good Color
Labs/Micro/Reports
Lab Data
10/25/23 03:19
10/25/23 03:19
Laboratory Results
10/24/23 10/24/23
14:21 18:36
PT 18.3 H
INR 1.54
APTT 32.7
pH 7.37 7.40
pCO2 40 39
pO2 235 H 187 H
HCO3 23.1 24.2
O2 Delivery Level
Microbiology
10/24/23 08:00 Urine Urine Culture - Final
NO GROWTH
[2023-10-25 13:29] LABS: Glucose - Point of Care 105 mg/dl (70-99)
[2023-10-25] MEDS: NSS IV (13:31)
[2023-10-25] MEDS: NOVOLOG FLEXPEN SC (13:50)
--- NOTE | 2023-10-25 13:51 | PTCARENOTE ---
Assessment unchanged; NSR on monitor and VSS; pt up and in chair; pain medication given.
[2023-10-25 14:23] LABS: Glucose - Point of Care 118 mg/dl (70-99)
[2023-10-25 15:10] LABS: Glucose - Point of Care 260 mg/dl (70-99)
[2023-10-25 16:15] LABS: Glucose - Point of Care 235 mg/dl (70-99)
--- NOTE | 2023-10-25 16:55 | PTCARENOTE ---
Assessment unchanged; NSR on monitor and VSS; pt resting comfortably in chair.
[2023-10-25] MEDS: CRESTOR 10 MG PO (17:02)
[2023-10-25 17:12] LABS: Glucose - Point of Care 196 mg/dl (70-99)
[2023-10-25 18:06] LABS: Glucose - Point of Care 178 mg/dl (70-99)
[2023-10-25 19:06] LABS: Glucose - Point of Care 222 mg/dl (70-99)
--- NOTE | 2023-10-25 20:00 | PTCARENOTE ---
Received pt from dayshift; pt resting comfortably in chair; pt AAOx3; NSR on monitor, VSS; heart sounds audible, radial and DP pulse palpable, no edema noted, temp epicardial V wires insulated; lungs sounds diminished at b/l bases, spo2 94 on RA, x2
mediastinal and x [address] to bulb; hypoactive BS x4 quadrants, abdomen soft non tender; pt voiding clear yellow urine; surgical sites and dressings maintained; right IJ cordis and right PIV maintained; insulin gtt infusing; call sevilla within
reach. will continue to monitor.
[2023-10-25] MEDS: NOVOLIN R INSULIN INFUSION 100 IV (20:38)
[2023-10-25 22:22] LABS: Glucose - Point of Care 214 mg/dl (70-99)
[2023-10-25 22:22] LABS: Glucose - Point of Care 190 mg/dl (70-99)
[2023-10-25 22:26] LABS: Glucose - Point of Care 130 mg/dl (70-99)
[2023-10-25 23:09] LABS: Glucose - Point of Care 122 mg/dl (70-99)
[2023-10-26] VITALS (30 sets, daily range): BP systolic 50–146; BP diastolic 33–99; PULSE 77; O2SAT 95–98; BMI 26.1
--- NOTE | 2023-10-26 | PTCARENOTE ---
Pt assessment unchanged; VSS, NSR on monitor; pt resting comfortably in bed; 5 mg Marianne given for pain, see MAR; call sevilla within reach; will continue to monitor.
[2023-10-26 00:11] LABS: Glucose - Point of Care 105 mg/dl (70-99)
[2023-10-26] MEDS: TYLENOL 650 MG PO ×5 (00:12→20:25)
[2023-10-26 01:04] LABS: Glucose - Point of Care 102 mg/dl (70-99)
[2023-10-26 02:11] LABS: Glucose - Point of Care 112 mg/dl (70-99)
[2023-10-26] MEDS: ROXICODONE 5 MG PO (02:16)
[2023-10-26] MEDS: TYLENOL PO ×2 (04:00→21:49)
--- NOTE | 2023-10-26 04:00 | PTCARENOTE ---
Pt assessment unchanged; NSR on monitor, VSS; pt resting comfortably in bed; see MAR for ongoing pain management; labs drawn and sent; call sevilla within reach; will continue to monitor.
[2023-10-26 04:08] LABS: Glucose - Point of Care 84 mg/dl (70-99)
--- NOTE | 2023-10-26 04:11 | W.PN.CT ---
Addendum entered and electronically signed by Jeyson Ricardo MD 10/26/23 06:45:
Agree.
D/C CTs
OOB
Ambulate
Original Note:
Today's Communication / Plan
-
Plan:
-No major issues overnight. Hemodynamically and neurologically intact
-BP and HR tolerating current Amiodarone and Lopressor dose
-Cont. current meds (ASA, Plavix, Amiodarone, Lopressor, Crestor)
-Consider d/c of chest tubes: Med A -> 5/10, Med B -> 5/10, R pl -> 55/110
-Monitor h/h 8.11/12.7
-D/C insulin gtt/tele phase. Diabetes education/management following
-Maintain cordis another day
-Maintain temporary pacer wire (will cut before d/c home)
-Encourage use of IS
-Wean off of O2 as tolerated
-OOB into chair
-Ambulate
Assessment / Plan
-
-Assessment:
-S/P AVR (#23 Inspiris RESILIA)/CABG x 2 (ROSI to LAD, GSV to D1)/Endoscopic harvest/prep of RLE GSV, by Dr. Ricardo, 10/24/23, pod#2
-Severe
-LVEF
-Severe multivessel CAD
-Hx NSTEMI S/P PCI with YULY x 3 to RCA, complicated by broken wire in the RCA, 09/09/23 @ [facility]
-S/P PCI with YULY x 1 to RCA to trap broken wire in RCA, 09/09/23 @ [facility] (on Brilinta @ home)
-Brilinta washout
-HTN
-HLD
-T2DM (A1C 7.1)
-Former tobacco use (quit x 50 yrs)
-S/P Appendectomy
-Acute postop blood loss/anemia (stable without blood transfusion)
-Acute postop atelectasis/pleural effusion
-Acute postop hypovolemia with subsequent hypervolemia
Discussed patient care with: Cardiology, Nursing, Respiratory Therapy, Pharmacy and Care Team
Subjective
Procedure
AVR (#23 Inspiris CIRILOA)/CABG x 2 (ROSI to LAD, GSV to D1)/Endoscopic harvest/prep of RLE GSV, by Dr. Ricardo, 10/24/23
-
Date of Service: October 26, 2023
Pt c/o mild incisional/pleuritic chest pain, otherwise feels well
Objective Data
-
PT 18.3 Sec (11.4-14.6) H 10/24/23 14:21
INR 1.54 10/24/23 14:21
APTT 32.7 Sec (23.4-35.0) 10/24/23 14:21
Vital Signs
Vital Signs
Temp Pulse Resp BP Pulse Ox
98.9 F 74 20 126/61 97
10/26/23 00:00 10/26/23 00:10 10/25/23 18:13 10/26/23 00:00 10/26/23 00:10
CT Intake/Output/Weight
10/25/23 10/25/23 10/26/23
06:59 18:59 06:59
Intake Total 455.4 / 1372.4 98.7 / 98.7
Output Total 845 / 2250 1240 / 1465.0 225.0 / 1465.0
Balance -389.6 / -877.6 -1141.3 / -1366.3 -225.0 / -1366.3
SaO2: 97 (2L)
Physical Exam
-
General: Awake, Oriented and AOx3
Cardiovascular: Regular rate & rhythm, No Murmurs, No Rub and No Gallop
Respiratory: Decreased Breath Sounds (at bases, otherwise clear)
Sternum: Stable
Incision: Clean, Dry, Intact and Dressing Intact
Extremities: Other (+trace edema)
Data Reviewed
-
Lab Results: Results Reviewed
Medications: Active Meds Reviewed
Chest X-Ray: Report Reviewed and Image Reviewed
ECG: Report Reviewed and Image Reviewed
[2023-10-26 04:18] LABS: Hematocrit 24.7 % (39.0-52.0); Hemoglobin 8.3 g/dL (13.0-18.0); Mean Corp Hgb Conc. 33.6 g/dL (33.0-37.0); Mean Corpuscular Hgb 30.1 pg (27.0-31.0); Mean Corpuscular Volume 89.5 fL (80.0-94.0); Mean Platelet Volume 9.4 fL (7.4-10.4); Platelet Count 128 10^3/uL (130-400); Red Blood Cell Count 2.76 10^6/uL (4.70-6.10); Red Cell Dist. Width 13.7 % (11.5-14.5); White Blood Cell Count 11.6 10^3/uL (4.8-10.8)
[2023-10-26 05:16] LABS: Blood Urea Nitrogen 25 mg/dl (9-20); Calcium 8.2 mg/dl (8.4-10.2); Carbon Dioxide 28 mmol/L (22-30); Chloride 106 mmol/L (98-107); Estimated Creatinine Clearance 74 ml/min; Glucose 77 mg/dl (70-99); Magnesium 2.2 mg/dl (1.6-2.3); Potassium 3.9 mmol/L (3.5-5.1); Sodium 137 mmol/L (135-145); eGFR > 60.00
[2023-10-26 06:12] LABS: Glucose - Point of Care 145 mg/dl (70-99)
--- NOTE | 2023-10-26 07:00 | PTCARENOTE ---
Bedside walking rounds report received. Patient seen on rounds oob in chair on room air and tolerating well, Awake alert and oriented x 3. Just feels 'very tired' and felt better yesterday. Instruction and educated on post op course and emotional
support/encouragement given. NSR with BBB. Temp epicardial v wire is insulated and secured. [employer] pacing box readily accessible in room. Chest tubes x 3 (Med a and b/left pleural all to bulb drain suction). Will diurese with lasix IV and per
ct surgery will dc chest tubes this am. See flowrecord for remaining assessments.
[2023-10-26] MEDS: MAGNESIUM OXIDE 500 MG PO ×2 (07:56→20:26)
[2023-10-26] MEDS: LOPRESSOR 12.5 MG PO ×2 (07:56→20:26)
[2023-10-26] MEDS: LASIX 40 MG IV (07:56)
[2023-10-26] MEDS: SENOKOT-S 1 TABLET PO (07:56)
[2023-10-26] MEDS: PACERONE 200 MG PO ×3 (07:56→20:26)
[2023-10-26] MEDS: PLAVIX 75 MG PO (07:57)
[2023-10-26] MEDS: BACTROBAN 2% OINTMENT 1 APPLIC NASAL ×2 (07:57→20:31)
[2023-10-26] MEDS: LOW STRENGTH ASPIRIN 81 MG PO (07:57)
[2023-10-26] MEDS: KCL 20 MEQ PO (07:57)
[2023-10-26] MEDS: TIMOPTIC 0.5% OPHTHALMIC SOLUTION 1 DROP BOTH EYES (08:02)
[2023-10-26 08:04] LABS: Glucose - Point of Care 135 mg/dl (70-99)
[2023-10-26] MEDS: NOVOLOG FLEXPEN 4 UNITS SC (08:05)
--- NOTE | 2023-10-26 09:00 | PTCARENOTE ---
Patient is working with cardiac certified rehabilitation counselor: stood up and felt light headed and dizzy: very diaphoretic: blood pressures systolic in the 50's. Patient placed back in chair and legs reclined up: head reclined: felt better and systolic BP's in the 80's
to 90's. ABDELRAHMAN Sadler aware of same: new orders received. Will give 250ml 5% albumin. and continue to reassess.
[2023-10-26] MEDS: ALBUMIN 5% 250 IV (10:04)
[2023-10-26 10:14] LABS: Glucose - Point of Care 103 mg/dl (70-99)
--- NOTE | 2023-10-26 10:30 | PTCARENOTE ---
250ml 5% albumin given: sbp right arm 102mmhg. Patient is assisted back to bed: no lightheadedness or dizziness. Chest tubes x 3 (left pleural and meds x 2 A and B dc . Patient tolerated well. Sutures tied purse string by 2 cvicu RNs and sterile
vasogauze and dsd over same. Temp epicardial v wire wires and ground wire resecured and insulated. See flowrecord for remaining assessments
[2023-10-26] MEDS: FARXIGA 10 MG PO (12:11)
[2023-10-26] MEDS: GLUCOPHAGE 1000 MG PO ×2 (12:14→17:22)
[2023-10-26 12:15] LABS: Glucose - Point of Care 189 mg/dl (70-99)
[2023-10-26] MEDS: NSS 500 IV (12:34)
--- NOTE | 2023-10-26 12:48 | PN.DE.MGMTRT ---
Insulin Management
- -
10/26/2023 Diabetes Management Consult
Patient is s/p CABG x 2 POD 2. PMH NV, CAD, HTN, type 2 diabetes. Prior to admission was taking metformin 1000 BID. A1C is 7.1%, cr .9, eGFR > 60. Patient has been maintained on critical care glycemic protocol post op requiring 2 to 4.5 units of
insulin per hour.
Patient is awake alert and oriented, comfortable sitting in bed. He states that his primary care doctor manages his diabetes. He has a glucose monitor but admits he has not been testing his blood sugar at home but has relied on the A1C.
Will start Farxiga 10 mg now and daily with metformin 1000 mg BID. Insulin drip to stop 2 hours after lunch today. Low corrective insulin to start with dinner.
Provided Diabetes Education booklet and reviewed times to test glucose and target glucose ranges. Reviewed new diabetes medication (starred in booklet). Will follow.
Diabetes History
- -
Type of Diabetes: 2
Pre-Admission Diabetes Regimen
10/26/23
04:07
Creatinine 0.9
Lab Results
Hemoglobin A1c 7.1 % (4.0-5.6) H 10/14/23 08:33
Insulin Pump Settings
IP Diabetes Regimen
10/25/23 10/25/23 10/25/23
13:28 14:22 15:06
Glucose
POC Glucose 105 H 118 H 260 H
10/25/23 10/25/23 10/25/23
16:13 17:04 18:04
Glucose
POC Glucose 235 H 196 H 178 H
10/25/23 10/25/23 10/25/23
19:04 20:07 20:58
Glucose
POC Glucose 222 H 214 H 190 H
10/25/23 10/25/23 10/26/23
22:24 23:08 00:09
Glucose
POC Glucose 130 H 122 H 105 H
10/26/23 10/26/23 10/26/23
01:02 02:09 04:04
Glucose
POC Glucose 102 H 112 H 84
10/26/23 10/26/23 10/26/23
04:07 06:10 08:00
Glucose 77
POC Glucose 145 H 135 H
10/26/23 10/26/23
09:58 12:08
Glucose
POC Glucose 103 H 189 H
Meal type: Breakfast
Meal type: Lunch
Amount consumed: 100%
Amount consumed: 100%
Patient Education
--- NOTE | 2023-10-26 12:58 | PTCARENOTE ---
Patient received from previous RN resting comfortably in bed, AAO X 3, states pain controlled. RIJ Cordis w/kvo infusing. Insulin infusing per glycemic protocol. Epicardial V-wire insulated to chest wall. All procedural sites stable. Patient updated
to plan of care for the afternoon. See work list for full assessment and interventions performed.
--- NOTE | 2023-10-26 13:16 | CM ---
Priced both Jardiance and Farxiga thru patient's insurance, . Both medications are covered and there is an estimated $0/month co pay. TT to ABDELRAHMAN to update.
[2023-10-26 13:22] LABS: Glucose - Point of Care 155 mg/dl (70-99)
--- NOTE | 2023-10-26 13:27 | W.PN.CARDCBS ---
Addendum entered and electronically signed by Rasheed Pate MD 10/26/23 15:05:
I saw and examined the patient.
The Transmitter Engineer In Charge's note was reviewed and I agree with the note.
Comment: Briefly, 73-year-old man past medical history of recent NSTEMI status post PCI of the RCA and aortic stenosis now status post AVR/CABG on 10/24/2023
He has been doing well postoperatively is no longer requiring pressor or inotrope support, extubated and resting comfortably out of bed to chair
Does tell me that he had an episode of low pressures blood pressure this morning after receiving his morning medications but this has resolved
Telemetry unremarkable, he is maintaining sinus rhythm
Twelve-lead ECG from 10/25/[address] elevation, would monitor for signs of pericarditis, no rub on exam and not reporting pleuritic type chest pain
Agree with current cardiac meds
We will continue to follow
Original Note:
Today's Communication / Plan
-
Follow blood pressures
Continue postoperative care
In sinus rhythm
Continue DAPT
Impression / Plan
-
IMPRESSION:
-s/p AVR #23 mm valve and CABG (GANN-LAD, SVG-D) for treatment of severe symptomatic aortic stenosis with CADz 10/24/23
-Recent NSTEMI with catheterization and stenting of the RCA per Dr. Poole
-Hypertension
-Hyperlipidemia
-Diabetes
RECOMMENDATION:
-Doing well status post AVR/CABG 10/24/2023
-Was noted to be symptomatically hypotensive earlier today upon getting up with cardiac rehab after taking his a.m. meds. Of note he had previous issues with metoprolol as an outpatient. Also received IV Lasix this morning
-Was given albumin and blood pressure has recovered. No further dizziness or lightheadedness.
-Given recent NSTEMI and stenting, continue dual antiplatelet therapy
-Remains in sinus rhythm on review of telemetry
-Continue Crestor
-Out of bed/IS as able
-Discussed with nursing
Progress Note - Chief Of Party
Subjective
Date of Service: October 26, 2023
Was lightheaded earlier in the setting of hypotension, now much improved. Reports pain adequately controlled. Breathing much easier status post chest tube removal
Objective
Labs:
10/26/23 04:07
10/26/23 04:07
Labs
Hgb 8.3 g/dL (13.0-18.0) L 10/26/23 04:07
Hct 24.7 % (39.0-52.0) L 10/26/23 04:07
Plt Count 128 10^3/uL (130-400) L 10/26/23 04:07
PT 18.3 Sec (11.4-14.6) H 10/24/23 14:21
INR 1.54 10/24/23 14:21
APTT 32.7 Sec (23.4-35.0) 10/24/23 14:21
Sodium 137 mmol/L (135-145) 10/26/23 04:07
Potassium 3.9 mmol/L (3.5-5.1) 10/26/23 04:07
BUN 25 mg/dl (9-20) H 10/26/23 04:07
Creatinine 0.9 mg/dL (0.7-1.3) 10/26/23 04:07
Glucose 77 mg/dl (70-99) 10/26/23 04:07
Vital Signs and I&O:
Vital Signs
Temp Pulse Resp BP Pulse Ox
98 F 76 18 128/62 96
10/26/23 12:15 10/26/23 12:20 10/26/23 12:15 10/26/23 12:15 10/26/23 12:15
Vital Signs
Temp Pulse Resp BP Pulse Ox
98 F 76 18 128/62 96
10/26/23 12:15 10/26/23 12:20 10/26/23 12:15 10/26/23 12:15 10/26/23 12:15
Intake & Output
10/24/23 10/25/23 10/26/23 10/27/23
07:59 07:59 07:59 07:59
Intake Total 1383.0 / 1395.3 88.1 / 442.1 634 / 634
Output Total 2295 / 2400 1457.5 / 1457.5 1005 / 1005
Balance -912.0 / -1004.7 -1369.4 / -1015.4 -371 / -371
Physical Exam
Physical Exam
GEN: No distress, awake, alert, oriented x3
HEENT: supple, anicteric, mmm, eomi
LUNGS: CTA B/L, no wheezes/rales
CV: Reg, S1/S2, no murmur
ABD: soft, BS+, NT/ND
EXT: No cyanosis, clubbing. trace edema of B/L LE
NEURO: Gross non-focal
SKIN: Warm, pink, dry. No rash. Sternotomy dressing c/d/i.
--- NOTE | 2023-10-26 13:34 | W.PN.INTV ---
Today's Communication / Plan
Recommendations
Remains on insulin gtt, hopeful bridge to SQ
No new complaints, doing well
Once off drip, can transfer to tele. We will sign off upon transfer
Assessment
-
Patient is a 73-year-old male with previous history of severe aortic stenosis, CAD with recent PCI/YULY x 3 on 09/09/2023 complaining of worsening dyspnea on exertion over a 1 to 2-year period. Underwent CABG and AVR 10/24/2023 and postoperatively
transferred to CVICU for further management.
Severe s/p AVR; Multivessel CAD s/p CABG x 2 10/24/23
Perioperative MV
Postop anemia
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
Aortic stenosis� �
Atherosclerosis Coronary Artery�with Unstable Angina Pectoris� �
Type II diabetes� �
Hypertension� �
HX cardiac stents� �
History of NSTEMI, angioplasty and stent x4 to Right� � 09/09/2023� �
Appendectomy� �
Plan
S/p CAB/AVR POD #2
Off pressors per protocol
Prior ECHO for reviewed with normal EF, recent C reviewed
Chest tubes are discontinued
Pain control
RASS goal of 0 to -1
Intubated for procedure, extubated and doing well
ABG(s) reviewed-adequate
CXR with stable changes
Maintain supplement oxygen as needed
No prior history of pulmonary disease, former smoker >50 years ago
No prior PFTs for review
Can add nebulizers if needed
Aspiration precautions
Encouraged incentive spirometry, OOB/ambulation/early mobility
Advance diet as tolerated following extubation
GI prophylaxis if indicated for mechanical ventilation >48 hours
Monitor critical I/O's
Dove/chest tube output
Hb/platelets postoperatively stable
Hb noted to be in 9 range/Trend CBC for now
Can transfuse if indicated for Hb <7, plt <50 in surgical patients
DVT prophylaxis including SCDs
Insulin management, bridge as tolerated
DM WASTE COLLECTION DRIVER following
Diagnostic Data
CXR 10/24/23- Endotracheal tube is 2 cm above the jennifer. [place]-Nic catheter tip is oriented toward the right and at the level of the main pulmonary artery segment. There is a mediastinal drain and left-sided chest tubes. No pneumothorax. The heart
size is mildly enlarged. Patient is status post median sternotomy and valve replacement. Minimal atelectasis and/or interstitial edema.
ECHO 09/08/23: Normal LV function, EF 50-55%. Normal RV function, mild to moderate concentric LVH. Severe aortic valve stenosis. Moderate mitral annular calcification, inadequate tricuspid regurg to estimate PA pressure
[facility] 09/09/23- 1: Successful PCI with YULY x 1 to the right coronary artery.� Guille drug-eluting stent was used to cover an area of the right coronary artery where a wire fragment was placed.� The purpose of the procedure was to trap the broken off
piece of the wire behind the stent.
2: Completely revascularized right coronary artery with FELIX-3 flow.
-----
Critical Care time 32 mins -- The patient is admitted for acute critical illness for the treatment of vital organ failure and/or prevention of further life-threatening conditions. Total care includes time spent in review of history, physical exam,
medications, hemodynamic/ventilator parameters, laboratory data, imaging and discussion with house staff, pharmacy, respiratory therapy, senior production manager, and nursing.
Subjective Dataa
Subjective Data
Date of Service:
Date of Service: October 26, 2023
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
Subjective:
Remains in ICU due to insulin gtt
No new complaints
Objective Data
Data Reviewed
Vital Signs / I&O / Oxygen:
Vital Signs
Temp Pulse Resp BP Pulse Ox
98 F 76 18 128/62 96
10/26/23 12:15 10/26/23 12:20 10/26/23 12:15 10/26/23 12:15 10/26/23 12:15
Intake and Output
10/25/23 10/26/2310/26/24
06:59 06:59 06:59
Intake Total 1372.4 / 1372.4 98.7 / 98.7 634 / 634
Output Total 2250 / 2250 1502.5 / 1502.5 1005 / 1005
Balance -877.6 / -877.6 -1403.8 / -1403.8 -371 / -371
SaO2 [CPAP] 100
SaO2 [SIMV] 100
SaO2 96
Nasal Cannula flow liters per 2
minute
Physical Exam
General: Comfortable and Other (NAD)
HEENT: Normocephalic, Anicteric and Moist Mucous Membranes
Cardiovascular: S1-S2 and Regular Rhythm
Respiratory: Clear and Non-Labored Respirations
GI: Soft, Non Distended and Non Tender
Neurology: Awake, Alert, Oriented, AO x 3 and No Motor Deficits
Skin: Warm, Dry and Good Color
Labs/Micro/Reports
Lab Data
10/26/23 04:07
10/26/23 04:07
Microbiology
10/24/23 08:00 Urine Urine Culture - Final
NO GROWTH
[2023-10-26] MEDS: NOVOLOG FLEXPEN 300 UNITS SC (13:45)
[2023-10-26 14:27] LABS: Glucose - Point of Care 110 mg/dl (70-99)
[2023-10-26] MEDS: PROTONIX 40 MG PO (14:39)
[2023-10-26] MEDS: NOVOLOG FLEXPEN SC (16:04)
[2023-10-26] MEDS: ZOFRAN 4 MG IV (16:14)
--- NOTE | 2023-10-26 16:26 | PTCARENOTE ---
VS obtained, assessment stable. Patient assisted to bathroom, voided, +BM. Settled to chair, perusing menu for dinner.
--- NOTE | 2023-10-26 16:45 | PTCARENOTE ---
Extubated to 6l nasal canula. Following simple commands and moving all extremities Denies pain denies nausea
[2023-10-26 17:05] LABS: Glucose - Point of Care 119 mg/dl (70-99)
[2023-10-26] MEDS: NOVOLOG FLEXPEN-LOW RESISTANCE SC (17:20)
[2023-10-26] MEDS: CRESTOR 10 MG PO (17:22)
[2023-10-26] MEDS: SENOKOT-S PO (20:26)
[2023-10-27] VITALS (10 sets, daily range): BP systolic 103–145; BP diastolic 49–126; PULSE 84; O2SAT 96–98; BMI 25.7
[2023-10-27] MEDS: TYLENOL PO ×2 (01:14→05:25)
[2023-10-27 05:25] LABS: Hematocrit 25.8 % (39.0-52.0); Hemoglobin 8.6 g/dL (13.0-18.0); Mean Corp Hgb Conc. 33.3 g/dL (33.0-37.0); Mean Corpuscular Hgb 30.6 pg (27.0-31.0); Mean Corpuscular Volume 91.8 fL (80.0-94.0); Mean Platelet Volume 9.6 fL (7.4-10.4); Platelet Count 128 10^3/uL (130-400); Red Blood Cell Count 2.81 10^6/uL (4.70-6.10); Red Cell Dist. Width 13.3 % (11.5-14.5); White Blood Cell Count 9.6 10^3/uL (4.8-10.8)
--- NOTE | 2023-10-27 05:31 | W.PN.CT ---
Today's Communication / Plan
-
-pod #3
-no issues overnight
-labs are pending
-weaned off O2 - pOx 95% on RA
-labs are pending
-current meds (ASA, Plavix, Crestor, Lopressor, Amio, Glucophage, Farxiga, Protonix)
-appreciate everyone's input
-encourage IS, OOB, ambulate
Assessment / Plan
-
-Assessment:
-S/P AVR (#23 Inspiris RESILIA)/CABG x 2 (ROSI to LAD, GSV to D1)/Endoscopic harvest/prep of RLE GSV, by Dr. Ricardo, 10/24/23, pod#3
-Severe
-LVEF
-Severe multivessel CAD
-Hx NSTEMI S/P PCI with YULY x 3 to RCA, complicated by broken wire in the RCA, 09/09/23 @ [facility]
-S/P PCI with YULY x 1 to RCA to trap broken wire in RCA, 09/09/23 @ [facility] (on Brilinta @ home)
-Brilinta washout
-HTN
-HLD
-T2DM (A1C 7.1)
-Former tobacco use (quit x 50 yrs)
-S/P Appendectomy
-Acute postop blood loss/anemia (stable without blood transfusion)
-Acute postop atelectasis/pleural effusion
-Acute postop hypovolemia with subsequent hypervolemia
Discussed patient care with: Nursing and Care Team
Subjective
Procedure
AVR (#23 Inspiris RESILIA)/CABG x 2 (ROSI to LAD, GSV to D1)/Endoscopic harvest/prep of RLE GSV, by Dr. Ricardo, 10/24/23
-
Date of Service: October 27, 2023
Objective Data
-
PT 18.3 Sec (11.4-14.6) H 10/24/23 14:21
INR 1.54 10/24/23 14:21
APTT 32.7 Sec (23.4-35.0) 10/24/23 14:21
Vital Signs
Vital Signs
Temp Pulse Resp BP Pulse Ox
98.2 F 77 17 128/74 95
10/26/23 20:00 10/26/23 22:50 10/26/23 16:24 10/26/23 20:28 10/26/23 16:24
CT Intake/Output/Weight
10/26/23 10/26/23 10/27/23
06:59 18:59 06:59
Intake Total 949 / 949
Output Total 262.5 / 1502.5 1005 / 1325 320 / 1325
Balance -262.5 / -1403.8 -56 / -376 -320 / -376
SaO2: 95
Physical Exam
-
General: Awake and AOx3
Cardiovascular: Regular rate & rhythm, No Murmurs and No Rub
Respiratory: Rales (at bases. No wheeze) and Decreased Breath Sounds
Sternum: Stable
Incision: Clean, Dry and Dressing Intact
Extremities: No Edema (2+ DP b/l)
Data Reviewed
-
Lab Results: Results Reviewed
Medications: Active Meds Reviewed
Chest X-Ray: Report Reviewed and Image Reviewed
ECG: Report Reviewed and Image Reviewed
[2023-10-27 05:59] LABS: Blood Urea Nitrogen 30 mg/dl (9-20); Calcium 8.3 mg/dl (8.4-10.2); Carbon Dioxide 29 mmol/L (22-30); Chloride 101 mmol/L (98-107); Estimated Creatinine Clearance 84 ml/min; Glucose 123 mg/dl (70-99); Potassium 4.1 mmol/L (3.5-5.1); Sodium 140 mmol/L (135-145); eGFR > 60.00
[2023-10-27] MEDS: MAGNESIUM OXIDE 500 MG PO (07:39)
[2023-10-27] MEDS: PLAVIX 75 MG PO (07:39)
[2023-10-27] MEDS: BACTROBAN 2% OINTMENT 1 APPLIC NASAL ×2 (07:39→21:25)
[2023-10-27] MEDS: GLUCOPHAGE 1000 MG PO ×2 (07:39→17:03)
[2023-10-27] MEDS: FARXIGA 10 MG PO (07:39)
[2023-10-27] MEDS: KCL 20 MEQ PO (07:39)
[2023-10-27] MEDS: LOPRESSOR 12.5 MG PO (07:39)
[2023-10-27] MEDS: LOW STRENGTH ASPIRIN 81 MG PO (07:39)
[2023-10-27] MEDS: PACERONE 200 MG PO ×3 (07:39→21:26)
[2023-10-27] MEDS: PROTONIX 40 MG PO (07:39)
[2023-10-27] MEDS: SENOKOT-S PO ×2 (07:40→21:26)
[2023-10-27] MEDS: TIMOPTIC 0.5% OPHTHALMIC SOLUTION 1 DROP BOTH EYES (07:40)
--- NOTE | 2023-10-27 07:45 | PTCARENOTE ---
Received pt from credit risk associate; pt AAOX3 and resting comfortably in chair; NSR on monitor and VSS; Epicardial V wires insulated; lungs diminished; IS 1000; positive bowel sounds; pt voiding clear yellow urine; palpable pulses; trace generalized edema;
surgical sites C/D/I; see nursing documentation for further details.
[2023-10-27 07:48] LABS: Glucose - Point of Care 165 mg/dl (70-99)
[2023-10-27] MEDS: NOVOLOG FLEXPEN-LOW RESISTANCE 1 UNITS SC ×2 (07:49→17:48)
[2023-10-27] MEDS: LASIX 40 MG IV (07:55)
[2023-10-27] MEDS: NOVOLOG FLEXPEN SC (08:52)
--- NOTE | 2023-10-27 09:30 | W.PN.CARDCBS ---
Addendum entered and electronically signed by Melvin Longoria MD 10/27/23 17:06:
patient seen and examined
agree with LISSETTE Singh's notes and assessment
agree with LISSETTE Singh's plan
exam:
sternum cdi
tele reviewed
SR
cor regular no m
lungs diminished but clear
abd soft nt nd
no ext edema
aao x3
non focal neurologically
Primary Per Diem Rn: Dr. Poole
IMPRESSION:
-s/p AVR #23 mm valve and CABG (GANN-LAD, SVG-D) for treatment of severe symptomatic aortic stenosis with CADz 10/24/23
-Recent NSTEMI with catheterization and stenting of the RCA per Dr. Poole
-Hypertension
-Hyperlipidemia
-Diabetes
RECOMMENDATION:
-continues to do well status post AVR/CABG 10/24/2023
-BPs stable overnight
-Given recent NSTEMI and stenting, continue dual antiplatelet therapy
-Remains in sinus rhythm on review of telemetry
-Continue Crestor at increased dose of 10mg QPM
-was on toprol 12.5mg daily and valsartan 80mg QPM preadmission. currently on lopressor, arb remains on hold.
-continue farxiga
-OOB/IS
-for DC in AM
-Discussed with nursing
Original Note:
Today's Communication / Plan
-
continue post op care
OOB/IS
DAPT, crestor, BB, farxiga
likely home in AM
Impression / Plan
-
Primary Per Diem Rn: Dr. Poole
IMPRESSION:
-s/p AVR #23 mm valve and CABG (GANN-LAD, SVG-D) for treatment of severe symptomatic aortic stenosis with CADz 10/24/23
-Recent NSTEMI with catheterization and stenting of the RCA per Dr. Poole
-Hypertension
-Hyperlipidemia
-Diabetes
RECOMMENDATION:
-continues to do well status post AVR/CABG 10/24/2023
-BPs stable overnight
-Given recent NSTEMI and stenting, continue dual antiplatelet therapy
-Remains in sinus rhythm on review of telemetry
-Continue Crestor at increased dose of 10mg QPM
-was on toprol 12.5mg daily and valsartan 80mg QPM preadmission. currently on lopressor, arb remains on hold.
-continue farxiga
-OOB/IS
-for DC in AM
-Discussed with nursing
Progress Note - Per Diem Rn
Subjective
Date of Service: October 27, 2023
Doing well. Denies significant pain, shortness of breath. No further dizziness overnight
Objective
Labs:
10/27/23 05:12
10/27/23 05:12
Labs
Hgb 8.6 g/dL (13.0-18.0) L 10/27/23 05:12
Hct 25.8 % (39.0-52.0) L 10/27/23 05:12
Plt Count 128 10^3/uL (130-400) L 10/27/23 05:12
PT 18.3 Sec (11.4-14.6) H 10/24/23 14:21
INR 1.54 10/24/23 14:21
APTT 32.7 Sec (23.4-35.0) 10/24/23 14:21
Sodium 140 mmol/L (135-145) 10/27/23 05:12
Potassium 4.1 mmol/L (3.5-5.1) 10/27/23 05:12
BUN 30 mg/dl (9-20) H 10/27/23 05:12
Creatinine 0.8 mg/dL (0.7-1.3) 10/27/23 05:12
Glucose 123 mg/dl (70-99) H 10/27/23 05:12
Vital Signs and I&O:
Vital Signs
Temp Pulse Resp BP Pulse Ox
98.3 F 88 20 103/50 97
10/27/23 08:00 10/27/23 08:50 10/27/23 08:00 10/27/23 07:39 10/27/23 09:03
Vital Signs
Temp Pulse Resp BP Pulse Ox
98.3 F 88 20 103/50 97
10/27/23 08:00 10/27/23 08:50 10/27/23 08:00 10/27/23 07:39 10/27/23 09:03
Intake & Output
10/25/23 10/26/23 10/27/23 10/28/23
07:59 07:59 07:59 07:59
Intake Total 1383.0 / 1395.3 88.1 / 442.1 949 / 949
Output Total 2295 / 2400 1457.5 / 1457.5 1325 / 2125 800 / 800
Balance -912.0 / -1004.7 -1369.4 / -1015.4 -376 / -1176 -800 / -800
Physical Exam
Physical Exam
GEN: No distress, awake, alert, oriented x3. sitting in chair
HEENT: supple, anicteric, mmm, eomi
LUNGS: CTA B/L, no wheezes/rales
CV: Reg, S1/S2, no murmur
ABD: soft, BS+, NT/ND
EXT: No cyanosis, clubbing.
NEURO: Gross non-focal
SKIN: Warm, pink, dry. No rash. Sternotomy dressing c/d/i.
--- NOTE | 2023-10-27 10:53 | PTCARENOTE ---
RIJ Cordis removed per CV ROLL FORMING MACHINE OPERATOR order.
--- NOTE | 2023-10-27 11:35 | PTCARENOTE ---
Assessment unchanged; NSR on monitor and VSS; pt resting comfortable in bed.
--- NOTE | 2023-10-27 11:39 | PN.DE.MGMTRT ---
Insulin Management
- -
10/27/2023 Diabetes Management Follow up
Patient is s/p CABG x 2 POD 3. PMH [place], CAD, HTN, type 2 diabetes. Prior to admission was taking metformin 1000 BID. A1C is 7.1%, cr .9, eGFR > 60.
Patient is awake, alert and OOB, able to participate in discussion of diabetes management.
Patient was started on Farxiga 10 mg daily yesterday and metformin 1000 mg was restarted. Insulin infusion was stopped after lunch. Glucose pre dinner 119, fasting venous 123, POC 165. Will continue current regimen. Patient again states he has a
working glucose monitor with supplies.
Diabetes History
- -
Type of Diabetes: 2
Pre-Admission Diabetes Regimen
10/27/23
05:12
Creatinine 0.8
Lab Results
Hemoglobin A1c 7.1 % (4.0-5.6) H 10/14/23 08:33
Insulin Pump Settings
IP Diabetes Regimen
10/26/23 10/26/23 10/26/23
12:08 13:11 14:26
Glucose
POC Glucose 189 H 155 H 110 H
10/26/23 10/27/23 10/27/23
17:03 05:12 07:45
Glucose 123 H
POC Glucose 119 H 165 H
Meal type: Breakfast
Meal type: Dinner
Meal type: Lunch
Amount consumed: 100%
Amount consumed: 100%
Amount consumed: 50%
Patient Education
--- NOTE | 2023-10-27 11:57 | CM ---
Addendum entered by TORRI Greco 10/27/23 11:58:
Did update pt. on estimated cost of Jardiance and Farxiga.
Original Note:
CM following for DC planning needs.
Met w/ Rafael at bedside. Reviewed CM role.
Reviewed DC plan for home w/ CT Transitional Care RN.
Pt. aware/agreeable.
Pt. anticipates DC to home on 10/27.
CM to follow.
[2023-10-27 12:32] LABS: Glucose - Point of Care 144 mg/dl (70-99)
[2023-10-27] MEDS: NOVOLOG FLEXPEN-LOW RESISTANCE SC (13:45)
[2023-10-27] MEDS: NSS IV (13:45)
--- NOTE | 2023-10-27 16:23 | PTCARENOTE ---
NSR on monitor and VSS: assessment unchanged.
[2023-10-27] MEDS: CRESTOR 10 MG PO (17:02)
[2023-10-27 17:06] LABS: Glucose - Point of Care 157 mg/dl (70-99)
--- NOTE | 2023-10-27 20:00 | PTCARENOTE ---
PT AAOx4 independent in the room, VSS surgical wounds CDI. planned D/C in am. see worklist for detailed assessment
[2023-10-27] MEDS: LOPRESSOR PO (21:25)
[2023-10-27] MEDS: MAGNESIUM OXIDE PO (21:25)
[2023-10-28] VITALS: BP 134/67
--- NOTE | 2023-10-28 | PTCARENOTE ---
no change from previous assessment
--- NOTE | 2023-10-28 03:34 | W.PN.CT ---
Today's Communication / Plan
-
-pod #4
-no issues overnight
-labs are pending
-current meds (ASA, Plavix, Crestor, Lopressor, Amio, Glucophage, Farxiga, Protonix)
-follow 2v-CXR
-d/c pw prior to discharge
-appreciate everyone's input
-encourage IS, OOB, ambulate
Assessment / Plan
-
-Assessment:
-S/P AVR (#23 Inspiris RESILIA)/CABG x 2 (ROSI to LAD, GSV to D1)/Endoscopic harvest/prep of RLE GSV, by Dr. Ricardo, 10/24/23, pod#4
-Severe
-LVEF
-Severe multivessel CAD
-Hx NSTEMI S/P PCI with YULY x 3 to RCA, complicated by broken wire in the RCA, 09/09/23 @ [facility]
-S/P PCI with YULY x 1 to RCA to trap broken wire in RCA, 09/09/23 @ [facility] (on Brilinta @ home)
-Brilinta washout
-HTN
-HLD
-T2DM (A1C 7.1)
-Former tobacco use (quit x 50 yrs)
-S/P Appendectomy
-Acute postop blood loss/anemia (stable without blood transfusion)
-Acute postop atelectasis/pleural effusion
-Acute postop hypovolemia with subsequent hypervolemia
Discussed patient care with: Nursing and Care Team
Subjective
Procedure
AVR (#23 Inspiris RESILIA)/CABG x 2 (ROSI to LAD, GSV to D1)/Endoscopic harvest/prep of RLE GSV, by Dr. Ricardo, 10/24/23
-
Date of Service: October 28, 2023
Objective Data
-
PT 18.3 Sec (11.4-14.6) H 10/24/23 14:21
INR 1.54 10/24/23 14:21
APTT 32.7 Sec (23.4-35.0) 10/24/23 14:21
Vital Signs
Vital Signs
Temp Pulse Resp BP Pulse Ox
98.2 F 81 18 145/53 96
10/27/23 20:00 10/27/23 21:50 10/27/23 16:22 10/27/23 19:39 10/27/23 16:22
CT Intake/Output/Weight
10/27/23 10/27/23 10/28/23
06:59 18:59 06:59
Output Total 320 / 1325 1000 / 1500 500 / 1500
Balance -320 / -376 -1000 / -1500 -500 / -1500
SaO2: 96
Physical Exam
-
General: Awake and AOx3
Cardiovascular: Regular rate & rhythm, No Murmurs and No Rub
Respiratory: Rales (at bases. No wheeze) and Decreased Breath Sounds
Sternum: Stable
Incision: Clean, Dry and Dressing Intact
Abdomen: soft, nontender, nondistended, + bowel sounds
Extremities: No Edema (2+ DP b/l)
Data Reviewed
-
Lab Results: Results Reviewed
Medications: Active Meds Reviewed
Chest X-Ray: Report Reviewed and Image Reviewed
ECG: Report Reviewed and Image Reviewed
--- NOTE | 2023-10-28 04:00 | PTCARENOTE ---
no change from previous assessment
[2023-10-28 04:10] VITALS: BP 119/64
[2023-10-28 04:26] LABS: Hematocrit 26.7 % (39.0-52.0); Hemoglobin 8.9 g/dL (13.0-18.0); Mean Corp Hgb Conc. 33.3 g/dL (33.0-37.0); Mean Corpuscular Hgb 30.4 pg (27.0-31.0); Mean Corpuscular Volume 91.1 fL (80.0-94.0); Mean Platelet Volume 9.6 fL (7.4-10.4); Platelet Count 187 10^3/uL (130-400); Red Blood Cell Count 2.93 10^6/uL (4.70-6.10); Red Cell Dist. Width 13.2 % (11.5-14.5); White Blood Cell Count 9.3 10^3/uL (4.8-10.8)
[2023-10-28 04:48] LABS: Blood Urea Nitrogen 36 mg/dl (9-20); Calcium 8.5 mg/dl (8.4-10.2); Carbon Dioxide 30 mmol/L (22-30); Chloride 99 mmol/L (98-107); Estimated Creatinine Clearance 74 ml/min; Glucose 146 mg/dl (70-99); Sodium 138 mmol/L (135-145); eGFR > 60.00
[2023-10-28 06:00] VITALS: BMI 25.1
--- NOTE | 2023-10-28 07:10 | PN.DE.MGMTRT ---
Insulin Management
- -
10/28/2023 Diabetes Management Follow up
Patient is s/p CABG x 2 POD 4. PMH [place], CAD, HTN, type 2 diabetes. Prior to admission was taking metformin 1000 BID. A1C is 7.1%, cr .9, eGFR > 60.
Patient is awake, alert and OOB, able to participate in discussion of diabetes management.
Patient transitioned from insulin infusion 10/25 to metformin 1000 mg BID with new medication farxiga 10 mg daily. Glucose remains well controlled, 123 to 157. At discharge patient to continue this regimen.
Diabetes History
- -
Type of Diabetes: 2
Pre-Admission Diabetes Regimen
10/28/23
04:13
Creatinine 0.9
Lab Results
Hemoglobin A1c 7.1 % (4.0-5.6) H 10/14/23 08:33
Insulin Pump Settings
IP Diabetes Regimen
10/27/23 10/27/23 10/27/23
07:45 12:29 17:05
Glucose
POC Glucose 165 H 144 H 157 H
10/28/23
04:13
Glucose 146 H
POC Glucose
Meal type: Dinner
Meal type: Breakfast
Amount consumed: 100%
Amount consumed: 100%
Patient Education
--- NOTE | 2023-10-28 08:00 | PTCARENOTE ---
Received patient from prior shift. Pt assessment completed, see documentation in medical record. Pt education initiated about ISB use, cough and deep breathing with the heart pillow, mobility, nutrition, pain management, sternal precautions and rest
periods. Pt asked to demonstrate ISB, and patient education completed to correct technique. Pt demonstrated understanding of education using the teach back method. Proper technique with the incentive spirometer will be reinforced, and patient
instructed to use the ISB ten times per hour (minimum). Medication education including medication side effects provided for all 0800 medications prior to administering AM medications. Pt sitting in the chair and resting comfortably. Medication
education will be reinforced throughout the day. IV site flushed and patent.
[2023-10-28 08:22] VITALS: BP 127/61
[2023-10-28] MEDS: PACERONE 200 MG PO (08:30)
[2023-10-28] MEDS: MAGNESIUM OXIDE 500 MG PO (08:30)
[2023-10-28] MEDS: SENOKOT-S 1 TABLET PO (08:30)
[2023-10-28] MEDS: GLUCOPHAGE 1000 MG PO (08:31)
[2023-10-28] MEDS: FARXIGA 10 MG PO (08:32)
[2023-10-28] MEDS: LOW STRENGTH ASPIRIN 81 MG PO (08:32)
[2023-10-28] MEDS: PROTONIX 40 MG PO (08:32)
[2023-10-28] MEDS: PLAVIX 75 MG PO (08:32)
[2023-10-28] MEDS: TIMOPTIC 0.5% OPHTHALMIC SOLUTION 1 DROP BOTH EYES (08:33)
[2023-10-28] MEDS: BACTROBAN 2% OINTMENT 1 APPLIC NASAL (08:33)
--- NOTE | 2023-10-28 08:33 | W.DCSUMMARY ---
Discharge Summary
Discharge Data
Date of Admission: 10/24/23
Date of Discharge: 10/28/23
-
Pending Results: No
Hospital Course
Primary care physician:
Levi Jones
Outpatient rn wound care:
Mele Poole
Inpatient consultants:
DCA, soft crab shedder
Procedures:
1. Coronary Artery Bypass Grafting x 2
2. Aortic valve replacement #23 Resilia tissue valve
Primary Diagnosis:
1. Coronary artery disease
2. Severe aortic valve stenosis
Secondary Diagnoses:
1. Hypertension
2. Hyperlipidemia
3. Type II Diabetes Mellitus
4. History of non-ST elevation myocardial infarction with drug eluding stent to the right coronary artery in 09/09/23
HPI: 73 y/o male presented on 10/23 for an elective AVR/CABG with Dr. Ricardo
Hospital course: Patient was electively admitted on the morning of 10/23 for a aortic valve replacement and a CABG with Dr. Ricardo. After the procedure patient returned to the CVICU on Levophed, insulin, Precedex infusions. Patient was weaned off
Precedex and started on a spontaneous breathing trial through the ventilator and patient was extubated on postop day 0. He was started on aspirin once tolerating oral medications. On 10/24 postop day #1, patient's A1c was elevated so insulin drip
was continued and diabetes management nurse practitioners were consulted. He was diuresed with 40 mg of IV Lasix, started on beta-blockers, amiodarone, and Plavix. All chest tubes were bulbs and wires were insulated. On 10/25 postop day #2, chest
tubes were removed due to low amounts of drainage. Drip insulin drip was discontinued and patient was started on Farxiga along with his home medication of metformin. On 10/26 postop day #3, he was diuresed with 40 mg of IV Lasix and Cordis was
removed. On 10/27 postop day #4 patient labs remained stable. 2 view chest x-ray remained stable and patient was deemed okay for discharge. All prescriptions were sent to his preferred pharmacy.
Home medication changes:
see below
Discharge Plan
-
Patient Disposition: Home (Routine Discharge)
Discharge Diagnosis/Procedures: AVR/CABG
Condition: Good
Diet: Low Cholesterol and Diabetic, Carb Controlled
Activity: No strenuous activity
Driving Restrictions: Not until seen by your Dr
Bathing Restrictions: OK to Shower
Other Services: Cardiac Rehab
Specialty Instructions: Weigh Daily- Call MD for wt gain/loss 3 lbs overnight/5 lbs in 1 week
Activity Restrictions/Additional Instructions:
ACTIVITY:
-No strenuous activity: no heavy lifting, pushing, pulling anything over 15 pounds for one month
-continue to use stairs as tolerated
DRIVING RESTRICTIONS:
-No driving for one month or until approved by your surgeon
WOUND CARE:
-Shower daily. Use soap & water.
-No lotions, creams or powders on incision area.
DIET:
-continue a low fat/low cholesterol diet.
-IF you are diabetic, continue carb controlled diet.
CARDIAC REHAB:
-Please make appointment to start in 5-6 weeks with your local hospital program. (See Cardiac Rehabilitation Discharge Booklet).
SPECIALTY INSTRUCTIONS:
-Weigh yourself daily. Call your physician for any weight gain/loss of 3 lbs overnight or 5 lbs in one week.
-REPORT any clicking noise or uneven appearance of your sternum to your surgeon immediately.
-If you smoke, you are instructed to quit. The [place] smoking hotline phone number is [phone]
Referrals:
CT Transitional Care Nurse [Outside] (The Cardiothoracic Transitional Care Nurse will call you to set up a visit in 1-2 days.)
Davion Muhammad MD [Family Provider] -
Sam Corona PA [Non-Admitting Privileges] - 12/13/23 1:00 pm
Jeyson Ricardo MD [Active] - 11/29/23 2:30 pm
Prescriptions:
New
rosuvastatin 10 mg Tablet
10 mg PO QPM Qty: 30 1RF
clopidogrel 75 mg Tablet
75 mg PO DAILY Qty: 30 0RF
pantoprazole 40 mg Tablet,Delayed Release (Dr/Ec)
40 mg PO DAILY Qty: 30 0RF
metoprolol succinate 25 mg Tablet Extended Release 24 Hr
25 mg PO DAILY Qty: 30 0RF
dapagliflozin propanediol [Farxiga] 10 mg Tablet
10 mg PO DAILY Qty: 30 1RF
Continued
metformin 1,000 mg Tablet
1,000 mg PO BID
timolol maleate 0.5 % Drops
1 drp BOTH EYES DAILY
acetaminophen 325 mg tablet
325 mg PO Q4HPRN PRN (Reason: mild pain)
aspirin [Children's Aspirin] 81 mg tablet,chewable
81 mg PO DAILY
Discontinued
valsartan 160 mg Tablet
80 mg PO QPM
metoprolol succinate 25 mg tablet extended release 24 hr
12.5 mg PO DAILY
Patient Comments:
patient hasn't been taking, only took 3-4 doses- stated 'BP was low'
rosuvastatin 10 mg tablet
5 mg PO QPM
Brilinta 90 mg tablet
90 mg PO BID
Care Plan Goals
Care Plan Goals:
Problem: Readiness for enhanced knowledge related to diagnosis and treatment plan
Goal: Understand your diagnosis and treatment plan needs, including medications if applicable.
Instructions: Know your diagnosis, underlying causes and treatment plan options, including medications if applicable. Consult with your health care team to learn about your diagnosis and treatment plan, including medications if applicable.
[2023-10-28 08:39] LABS: Glucose - Point of Care 142 mg/dl (70-99)
[2023-10-28] MEDS: NOVOLOG FLEXPEN-LOW RESISTANCE SC ×2 (08:39→12:09)
[2023-10-28] MEDS: TOPROL XL 25 MG PO (08:47)
[2023-10-28] MEDS: KCL 20 MEQ PO (08:47)
[2023-10-28] MEDS: LASIX 20 MG PO (08:59)
--- NOTE | 2023-10-28 09:00 | PTCARENOTE ---
Patient education completed regarding DVT prevention in the post operative period and the risk for PE and/or stroke. Pt instructed about anticoagulation treatment (plavix and ASA), frequent movement, frequent ankle pumps, and the need to increase
activity during recovery and after discharge. Fall risk prevention reinforced, and pt instructed not to get up from the chair or bed without the assistance of the nurse. Pt demonstrated an understanding of education using the teach back method. Call
sevilla in reach of patient at all times.
[2023-10-28] MEDS: LOPRESSOR PO (09:47)
[2023-10-28] MEDS: LASIX IV (09:47)
--- NOTE | 2023-10-28 10:30 | PTCARENOTE ---
Pt education reinforced regarding pain management. Pt instructed about the pain management goal to achieve a pain scale of 3 out of 10 pain or less. Pt education provided about pain medications and nonpharmaceutical pain management including
repositioning, rest, distraction, massage, imagery, hot or cold therapy, and exercise. Pt demonstrated an understanding of education using the teach back method. Pt reports 1 out of 10 pain currently.
--- NOTE | 2023-10-28 10:37 | PTCARENOTE ---
Patient in the shower now, RN standing outside bathroom for assist. Aquacell AG removed with esenta adhesive removal spray. Pt is in good spirits and looking forward to going home. Cardiac rehab will assist with walking stairs before discharge.
--- NOTE | 2023-10-28 10:40 | PTCARENOTE ---
Pacer wire cut per protocol ([address] CAN CAPPER discontinued and cut the ground wire. Pt tolerated without event.
[2023-10-28 11:04] VITALS: PULSE 88; O2SAT 98; O2SAT 99
--- NOTE | 2023-10-28 11:30 | PTCARENOTE ---
Prior patient assessment remains unchanged. Pt resting comfortably in the chair. Heart sounds S1S2 and lungs clear. Pain remains controlled at a 3 out of 10. Pt using ISB every hour, and ISB technique has improved. Pt has ambulated in the hallway
with one person assist for balance. Demonstrates proper sternal precautions and heart pillow use. Pt is scheduled for discharge.
[2023-10-28 12:00] VITALS: BP 122/70
[2023-10-28] MEDS: NSS IV (12:08)
--- NOTE | 2023-10-28 12:11 | PTCARENOTE ---
Pt waiting for son to take him home, discharged currently. Pt refuses lunch, states he will check his sugar and eat at home.
--- NOTE | 2023-10-28 12:23 | CM ---
CM following for DC planning needs.
Pt. for DC today per home; order noted.
Met w/ patient at bedside. He is aware/agreeable to DC.
There are no identified needs.
PLAN: HOME
--- NOTE | 2023-10-28 13:00 | PTCARENOTE ---
Discharge teaching provided for patient and his son. Extensive education completed with both about discharge instructions, follow up care, appointments, and medications. Pt education provided about medications, there purpose and side effects.
Activity level and diet education provided for both. Pt and son both demonstrated understanding of education using the teach back method.
--- NOTE | 2023-10-28 13:00 | PTCARENOTE ---
Pt education completed about the modifiable and non-modifiable risk factors for CAD. Education included emphasis on modifiable risk factors like high BP; high blood cholesterol levels; smoking; diabetes; overweight or obesity; lack of physical
activity; unhealthy diet and stress. Specific risk factors
that apply to the patient were discussed like diabetes and diet. Mr. Peguero demonstrated understanding of the the education with the teach back method.
--- NOTE | 2023-10-28 14:52 | W.PN.CARDCBS ---
Today's Communication / Plan
-
Stable cardiology status for discharge
Impression / Plan
-
Primary Silverware Supervisor: Dr. Poole
IMPRESSION:
-s/p AVR #23 mm valve and CABG (GANN-LAD, SVG-D) for treatment of severe symptomatic aortic stenosis with CADz 10/24/23
-Recent NSTEMI with catheterization and stenting of the RCA per Dr. Poole
-Hypertension
-Hyperlipidemia
-Diabetes
RECOMMENDATION:
Stable cardiology status for discharge
Remains in sinus rhythm
Given NSTEMI and stenting, continue dual antiplatelet therapy
Progress Note - Silverware Supervisor
Subjective
Date of Service: October 28, 2023
No complaints
Objective
Labs:
10/28/23 04:13
10/28/23 04:13
Labs
Hgb 8.9 g/dL (13.0-18.0) L 10/28/23 04:13
Hct 26.7 % (39.0-52.0) L 10/28/23 04:13
Plt Count 187 10^3/uL (130-400) D 10/28/23 04:13
PT 18.3 Sec (11.4-14.6) H 10/24/23 14:21
INR 1.54 10/24/23 14:21
APTT 32.7 Sec (23.4-35.0) 10/24/23 14:21
Sodium 138 mmol/L (135-145) 10/28/23 04:13
Potassium 4.0 mmol/L (3.5-5.1) 10/28/23 04:13
BUN 36 mg/dl (9-20) H 10/28/23 04:13
Creatinine 0.9 mg/dL (0.7-1.3) 10/28/23 04:13
Glucose 146 mg/dl (70-99) H 10/28/23 04:13
Vital Signs and I&O:
Vital Signs
Temp Pulse Resp BP Pulse Ox
98.4 F 82 17 122/70 98
10/28/23 12:00 10/28/23 12:00 10/28/23 12:00 10/28/23 12:00 10/28/23 12:00
Vital Signs
Temp Pulse Resp BP Pulse Ox
98.4 F 82 17 122/70 98
10/28/23 12:00 10/28/23 12:00 10/28/23 12:00 10/28/23 12:00 10/28/23 12:00
Intake & Output
10/26/23 10/27/23 10/28/23 10/29/23
06:59 06:59 06:59 06:59
Intake Total 98.7 / 98.7 949 / 949 240 / 240
Output Total 1502.5 / 1502.5 1325 / 1325 1500 / 1500
Balance -1403.8 / -1403.8 -376 / -376 -1500 / -1500 240 / 240
Physical Exam
Physical Exam
General: Well developed, well nourished in NAD.
Neck: Supple, no JVD, HJR, carotids +2 B/L, no bruits bilaterally.
Heart: Non displaced PMI, RRR, no murmurs, No S3, S4, no rubs.
Lungs: Scattered rhonchi
Sternal dressings noted
Extremities: No clubbing, cyanosis or edema bilaterally.
Neuro: Grossly nonfocal, awake, alert and oriented x3.
== END 2023-10-28 13:11 | disposition home or self-care (01) | DRG 219 ==
LOC: CVICU 04:51
PROVIDERS: Anesthesiology; Clinical Nurse Specialist Acute Care; Nurse Practitioner; ADMITTING PHYSICIAN Thoracic Surgery (Cardiothoracic Vascular Surgery); CONSULT PHYSICIAN Internal Medicine; FAMILY PHYSICIAN Student in an Organized Health Care Education/Training Program; OTHER PHYSICIAN Internal Medicine Interventional Cardiology
PROC: B24BZZ4 Ultrasonography of Heart with Aorta, Transesophageal (ICD-10-PCS; 2023-10-24)
PROC: 5A2204Z Restoration of Cardiac Rhythm, Single (ICD-10-PCS; 2023-10-24)
PROC: 06BP4ZZ Excision of Right Saphenous Vein, Percutaneous Endoscopic Approach (ICD-10-PCS; 2023-10-24)
PROC: 02RF08Z Replacement of Aortic Valve with Zooplastic Tissue, Open Approach (ICD-10-PCS; 2023-10-24)
PROC: 0HB5XZZ Excision of Chest Skin, External Approach (ICD-10-PCS; 2023-10-24)
PROC: 02100ZC Bypass Coronary Artery, One Artery from Thoracic Artery, Open Approach (ICD-10-PCS; 2023-10-24)
PROC: 021009W Bypass Coronary Artery, One Artery from Aorta with Autologous Venous Tissue, Open Approach (ICD-10-PCS; 2023-10-24)
PROC: 5A1221Z Performance of Cardiac Output, Continuous (ICD-10-PCS; 2023-10-24)
DX: I35.0 Nonrheumatic aortic (valve) stenosis (principal); I49.01 Ventricular fibrillation; D62 Acute posthemorrhagic anemia; I25.110 Atherosclerotic heart disease of native coronary artery with unstable angina pectoris; J98.11 Atelectasis; J90 Pleural effusion, not elsewhere classified; E86.1 Hypovolemia; E87.70 Fluid overload, unspecified; E11.9 Type 2 diabetes mellitus without complications; I10 Essential (primary) hypertension; E78.5 Hyperlipidemia, unspecified; I25.2 Old myocardial infarction; Z87.891 Personal history of nicotine dependence; Z95.5 Presence of coronary angioplasty implant and graft; Z79.82 Long term (current) use of aspirin; Z79.84 Long term (current) use of oral hypoglycemic drugs
CPT/HCPCS: 88304; 88305; 88311; 36415; 71045; 71046; 80048; 80053; 81003; 81015; 82248; 82330; 82565; 82805; 82810; 82947; 82962; 83036; 83735; 84132; 84302; 84520; 85014; 85018; 85025; 85027; 85049; 85610; 85730; 86850; 86900; 86901; 86920; 87070; 87086; 88341; 88342; 93005; 93312; 93320; 93325; 93880; 94002; P9045